=== PATIENT | male | born 1985 | race Caucasian/White ===

== ENCOUNTER 2025-01-30 16:20 | Inpatient (IN) ==
[2025-01-30] MEDS: LORazepam 2 MG/1 ML VIAL IV ONE (16:46)
[2025-01-30] MEDS: LORazepam 2 MG/1 ML VIAL IV STA (16:54)
[2025-01-30] MEDS ORDERED: Ativan IV Alcohol Withdrawal--Active Protocol IV PRN (16:55)
[2025-01-30] MEDS ORDERED: LORazepam 2 MG/1 ML VIAL IV PRN ×3 (16:55)
--- NOTE | 2025-01-30 17:01 | Emergency Department Note ---
Impression & Plan Delirium tremens, Transaminitis, Alcohol withdrawal seizure ED Provider Note NAME: KAYLEIGH GUTIERREZ AGE: 39 SEX: M : 1985 ARRIVES VIA: Ambulance INFORMANT: Patient, EMS/nursing report ED PROVIDER(S): Sonido Romero MD CHIEF COMPLAINT: Fall MEDICAL DECISION MAKING: Patient presents due to concern for a fall. I was called to the bedside emergently as the patient was having an active seizure. Upon my arrival the patient was not following commands. Patient's face appeared blue so his c- collar was removed in light of the concern for airway constraint. Patient was ordered IV Ativan and patient was able to open his airway better to where he regained color. Patient did receive additional IV Ativan 2 mg as the patient was noncompliant. Security did need to be called to help physically restrain the patient as the patient was not responding to verbal commands and was trying to get up and out of bed try to remove things from himself and thought that this was to the detriment of the patient as well as staff. Patient was also ordered IV Keppra blood work CT head cervical spine. Soft restraints also applied. Patient did require a total of 6 of IV Ativan. The patient did receive 3 g of Keppra. IV thiamine and folic acid also ordered in addition to IV fluids. Patient with a normal white count hemoglobin of 13.2 with a normal platelet count. The patient's kidney function unremarkable. Transaminitis noted with an AST and ALT of 121 and 60. Patient's lipase negative. Alcohol negative. Patient's chest x-ray without acute concerning findings. CT head and neck are negative. C-collar in place this could not clinically clear the patient. Given the concern for possible alcohol withdrawal related seizure I did speak with the on-call hospital service Dr. Billy and the patient was admitted to the medicine service. Critical Care: I have personally spent 48 minutes of critical care time in direct management of this patient. This includes bedside care, interpretation of diagnostic studies, and testing, discussion with consultants, patient, and family members, and other require inpatient management activities. This 48 minutes is in excess of all separately billable procedures. Discussion w/ other healthcare providers: Dr. Ernandez inpatient medicine service Prior /Outside records reviewed: I did review part of the visit note from July 2024 which showed the patient does have a history of alcohol use. Differential diagnosis: Epilepsy, infection, hypoglycemia, electrolyte abnormalities, cardiac sources, intracerebral event, trauma, toxicologic, neurologic, syncope, as well as other pathologies. Fracture, dislocation, contusion, strain, sprain, ICH, hemothorax, intra-abdominal injury, anemia among other causes were considered. Diagnostics, as interpreted by me: ECG: Normal sinus rhythm, rate of 86, normal FL and QRS, prolonged QTc, normal axis. No obvious STEMI. Cardiac monitoring: An order was placed for continuous cardiac monitoring. The monitor shows a rate of 87 with sinus rhythm. Patient was placed on pulse oximetry Medical decision rules: None Imaging studies: I informally interpreted the patient's Chest x-ray does not show obvious pneumonia or pneumothorax with formal report to follow. HPI: Patient presents due to concern for a fall. Was reported the patient had a BSG 114. Noted to be incontinent. No reported witnessed event but was found at the bottom of stairs. Patient reportedly was initially compliance awake alert following commands but had a seizure abruptly prior to being seen but this is what nursing/EMS could provide prior to arrival. Patient was reportedly not confused and was following all commands and was compliant. No reported prior history of seizures. PAST MEDICAL HISTORY: See Below PAST SURGICAL HISTORY: See Below SOCIAL HISTORY: See Below HOME MEDICATIONS: See Below ALLERGIES: See Below VITALS: See Below PHYSICAL EXAMINATION: GENERAL: Severe distress, c-collar in place, EYE EXAM: Normal conjunctiva. PERRL, no anisocoria and EOM's grossly intact w/o pain. OROPHARYNX: Moist mucus membranes, grossly normal dentition. Blood noted within the oropharynx. NECK: Trachea midline, no stridor. Supple, no nuchal rigidity, no adenopathy, non-tender. No signs of meningismus. FROM of the neck with good chin to chest and neck extension. LUNGS: Clear to auscultation. Normal chest wall mechanics. HEART: NSR, no MRG. ABDOMEN: Abdomen soft, non-tender, no masses, no rebound or guarding. BACK: No CVA TTP. SKIN: No rashes and no bruising. UPPER EXTREMITIES: Upper extremities are grossly normal. LOWER EXTREMITIES: Grossly normal, no edema. NEURO EXAM: Does not follow commands but normal speech cranial nerves II through XII grossly intact does move all 4 extremities. Able to speak. Past Med/Surg History Problem List (Updated 01/30/25 @ 22:54 by Sonido Romero MD) Alcohol withdrawal seizure (Acute) Postictal psychosis Transaminitis (Acute) Delirium tremens (Acute) New onset seizure Oral abscess Social History Smoking Status: Current every day smoker Tobacco Type: Cigarettes Hx Alcohol Use: Yes Alcohol Intake Frequency Comment: Regularly Hx Substance Use: Yes Preferred Language: Belarusian Current Living Situation: Alone Feels Safe at Home: Yes Allergies Allergies Allergy/AdvReac Type Severity Reaction Status Date / Time No Known Allergies Allergy Unverified 08/03/24 15:20 Home Meds Home Medications Medication Instructions Recorded Confirmed No Known Home Medications 08/03/24 08/03/24 Results & Data (ED) Vital Signs Vital Signs - 24 hr 01/30/25 16:09 01/30/25 16:12 01/30/25 16:42 Temperature 36.4 C L 36.4 C L Temperature Source Oral Oral Pulse Rate 94 H 85 Pulse Rate [Apical] 94 H Respiratory Rate 18 18 Respiratory Effort / Characteristics Non-Labored Non-Labored Respiratory Depth Normal Normal Respiratory Pattern Regular Blood Pressure 145/93 H Blood Pressure [Right Arm] Blood Pressure Mean 110 Blood Pressure Mean [Right Arm] Blood Pressure Position Lying Blood Pressure Position [Right Arm] Pulse Oximetry 99 99 Oxygen Delivery Method Room Air Room Air Sepsis Recent Fever Within 48 Hours No Sepsis New/Unexplained Change in Mental Status N/A Sepsis Action Taken by Nursing No Action Required 01/30/25 17:09 01/30/25 17:52 01/30/25 18:24 Temperature Temperature Source Pulse Rate Pulse Rate [Apical] 94 H 88 82 Respiratory Rate 17 16 20 Respiratory Effort / Characteristics Respiratory Depth Respiratory Pattern Blood Pressure Blood Pressure [Right Arm] 129/89 113/82 116/77 Blood Pressure Mean Blood Pressure Mean [Right Arm] 102 92 90 Blood Pressure Position Blood Pressure Position [Right Arm] Lying Pulse Oximetry 97 99 96 Oxygen Delivery Method Room Air Room Air Room Air Sepsis Recent Fever Within 48 Hours Sepsis New/Unexplained Change in Mental Status Sepsis Action Taken by Residential Medications Current Medication List: was personally reviewed by me Laboratory Data Attestation: I reviewed the patient's lab results. 01/30/25 16:30 01/30/25 16:30 Lab Results 03/28/25 Range/Units 16:30 WBC 7.96 (4.8-10.8) K/ul RBC 3.87 L (4.70-6.10) M/uL Hgb 13.2 L (14.0-18.0) g/dl Hct 38.7 L (42.0-52.0) % MCV 100.0 (80.0-100.0) fL MCH 34.1 H (25.0-34.0) pg MCHC 34.1 (32.0-36.0) g/dL RDW Std Deviation 41.5 (36.4-46.3) fL RDW Coeff of Adonis 11.3 L (11.5-14.5) % Plt Count 145 (130-400) K/uL MPV 9.8 (9.4-12.4) fL Immature Gran % (Auto) 0.6 % Neut % (Auto) 76.7 % Lymph % (Auto) 12.9 % Karnes % (Auto) 9.2 % Eos % (Auto) 0.1 % Baso % (Auto) 0.5 % Neut # (Auto) 6.10 (1.40-6.50) K/uL Lymph # (Auto) 1.03 L (1.20-3.40) K/uL Karnes # (Auto) 0.73 H (0.11-0.59) K/uL Eos # (Auto) 0.01 (0.00-0.50) K/uL Baso # (Auto) 0.04 (0.00-0.20) K/uL Immature Gran # (Auto) 0.05 (0.01-0.20) K/uL PT 10.7 (9.0-12.0) Seconds INR 1.0 (0.9-1.1) APTT 27 (21-31) Seconds PTT Ratio 1.0 Sodium 137 (136-145) mmol/L Potassium 3.5 (3.5-5.1) mmol/L Chloride 98 (98-107) mmol/L Carbon Dioxide 18 L (21-32) mmol/L Anion Gap 21 H (3-11) BUN 8 (6-23) mg/dl Creatinine 0.86 (0.6-1.4) mg/dl Est Cr Clr Drug Dosing 110.6 ml/min eGFR 111.56 BUN/Creatinine Ratio 9.3 L (10-20) Glucose 143 H (70-99(Fasting)) mg/dl Calcium 9.7 (8.6-10.3) mg/dl Phosphorus 4.9 (2.5-4.9) mg/dl Magnesium 2.2 (1.7-2.4) mg/dl Total Bilirubin 1.0 (0.2-1.0) mg/dl AST 121 H (13-39) U/L ALT 60 H (7-52) U/L Alkaline Phosphatase 269 H (34-104) U/L Total Protein 8.4 H (6.0-8.3) gm/dl Albumin 4.6 (3.4-5.0) gm/dl Globulin 3.8 (2.5-4.0) gm/dl Albumin/Globulin Ratio 1.2 (0.9-2) Lipase 64 (11-82) U/L Ethyl Alcohol mg/dL < 10.0 (<10.0) mg/dl Administered Medications Lactated Ringer's (Lr) 1,000 mls @ 125 mls/hr IV .Q8H ALEX Stop: 01/31/25 20:30 Last Admin: 01/30/25 21:31 Dose: 125 mls/hr Documented By: HODAN Lorazepam (Lorazepam 2 Mg/1 Ml Vial) 2 mg IV UD PRN; Protocol PRN Reason: EtOH Withdrawal AWSS Score 8,9 Stop: 03/01/25 16:54 Last Admin: 01/30/25 17:31 Dose: 2 mg Documented By: OLAYINKA Lorazepam (Lorazepam 2 Mg/1 Ml Vial) 1 mg IV Q6H ALEX Stop: 03/01/25 20:30 Last Admin: 01/30/25 20:43 Dose: 1 mg Documented By: HODAN Discontinued Medications Thiamine HCl 100 mg/ Syringe 10 mls @ 2 mls/min IV NOW STA Stop: 01/30/25 17:01 Last Admin: 01/30/25 18:24 Dose: 2 mls/min Documented By: OLAYINKA Folic Acid 1 mg/ Syringe 10 mls @ 5 mls/min IV NOW STA Stop: 01/30/25 16:58 Last Admin: 01/30/25 18:22 Dose: 5 mls/min Documented By: OLAYINKA Sodium Chloride (Nss) 1,000 mls @ 999 mls/hr IV .Q1H1M ONE Stop: 01/30/25 17:58 Last Infusion: 01/30/25 19:19 Dose: Infused Documented By: Admin: 01/30/25 17:17 Dose: 999 mls/hr Documented By: OLAYINKA Thiamine HCl 100 mg/ Syringe 10 mls @ 2 mls/min IV NOW STA Stop: 01/30/25 20:35 Last Admin: 01/30/25 21:34 Dose: 2 mls/min Documented By: HODAN Folic Acid 1 mg/ Syringe 10 mls @ 5 mls/min IV QAM ONE Stop: 01/30/25 20:32 Last Admin: 01/30/25 21:34 Dose: 5 mls/min Documented By: HODAN Levetiracetam (Levetiracetam 500 Mg/5 Ml Vial) 3,000 mg IV NOW STA Stop: 01/30/25 16:55 Last Admin: 01/30/25 17:13 Dose: 3,000 mg Documented By: OLAYINKA Lorazepam (Lorazepam 2 Mg/1 Ml Vial) Confirm Administered Dose 2 mg .ROUTE .STK- MED ONE Stop: 01/30/25 16:46 Last Admin: 01/30/25 17:15 Dose: Not Given Documented By: OLAYINKA Lorazepam (Lorazepam 2 Mg/1 Ml Vial) 2 mg IV NOW ONE Stop: 01/30/25 17:01 Last Admin: 01/30/25 16:46 Dose: 2 mg Documented By: OLAYINKA Lorazepam (Lorazepam 2 Mg/1 Ml Vial) Confirm Administered Dose 2 mg .ROUTE .STK- MED ONE Stop: 01/30/25 16:52 Last Admin: 01/30/25 17:15 Dose: Not Given Documented By: OLAYINKA Lorazepam (Lorazepam 2 Mg/1 Ml Vial) 2 mg IV NOW STA Stop: 01/30/25 17:00 Last Admin: 01/30/25 16:54 Dose: 2 mg Documented By: OLAYINKA Imaging Data Radiologist's Impression: Chest X-Ray 01/30/25 16:55 EXAM: Radiograph of the Chest 1 View INDICATION: Trauma TECHNIQUE: Frontal view of the chest. COMPARISON: 09/30/2018 FINDINGS: Lungs and pleural spaces: No consolidation or pulmonary edema. No pleural effusion or pneumothorax. Heart: Shape and configuration within normal limits allowing for technique. Mediastinum: Normal contour. Bones/joints: Old right lateral seventh or eighth rib fracture. No acute osseous abnormality. Soft tissues: No abnormality noted. No radiopaque foreign body noted. Upper abdomen: No abnormality noted. IMPRESSION: No acute cardiopulmonary disease. ACT 112: N/A Electronically signed by Nay Murray 01-30-2025 5:[address] 01/30/25 16:56 EXAM: CT Head and Cervical Spine Without Intravenous Contrast INDICATION: Unwitnessed fall with loss of consciousness and confusion. TECHNIQUE: Axial computed tomography images of the head/brain and cervical spine without intravenous contrast. Sagittal and coronal reformatted images were created and reviewed. This CT exam was performed using one or more of the following dose reduction techniques: automated exposure control, adjustment of the mA and/or kV according to patient size, and/or use of iterative reconstruction technique. COMPARISON: No relevant prior studies available. FINDINGS: Limitations: None. Brain and extra-axial spaces: No abnormality noted. No hemorrhage. No significant white matter disease. No edema. No ventriculomegaly. Sinuses: There is mild chronic mucosal thickening of the left sinuses. No sinus fluid. Mastoid air cells: No mastoid effusion. Orbits: No significant abnormality noted. Vertebrae: There is diffuse mild to moderate facet arthrosis. Moderate spondylosis and mild uncal spurring C5-C6 and C6-C7. No fracture or significant subluxation. Discs/spinal canal/neural foramina: Mild to moderate disc space narrowing C5-C6 and C6-C7. There is mild ventral canal stenosis at C3-C4 and C4-C5. There is asymmetric mild to moderate right ventral canal and mild right foraminal stenosis at C5-C6 and C6-C7. Soft tissues: No significant abnormality noted. Vasculature: No acute abnormality noted. Lung apices: No significant abnormality noted. Pleural space: No visualized pleural effusion or pneumothorax. IMPRESSION: 1. No acute change in the brain. 2. Cervical degenerative changes without fracture. ACT 112: N/A Electronically signed by Nay Murray 01-30-2025 6:[address] 01/30/25 16:56 EXAM: CT Head and Cervical Spine Without Intravenous Contrast INDICATION: Unwitnessed fall with loss of consciousness and confusion. TECHNIQUE: Axial computed tomography images of the head/brain and cervical spine without intravenous contrast. Sagittal and coronal reformatted images were created and reviewed. This CT exam was performed using one or more of the following dose reduction techniques: automated exposure control, adjustment of the mA and/or kV according to patient size, and/or use of iterative reconstruction technique. COMPARISON: No relevant prior studies available. FINDINGS: Limitations: None. Brain and extra-axial spaces: No abnormality noted. No hemorrhage. No significant white matter disease. No edema. No ventriculomegaly. Sinuses: There is mild chronic mucosal thickening of the left sinuses. No sinus fluid. Mastoid air cells: No mastoid effusion. Orbits: No significant abnormality noted. Vertebrae: There is diffuse mild to moderate facet arthrosis. Moderate spondylosis and mild uncal spurring C5-C6 and C6-C7. No fracture or significant subluxation. Discs/spinal canal/neural foramina: Mild to moderate disc space narrowing C5-C6 and C6-C7. There is mild ventral canal stenosis at C3-C4 and C4-C5. There is asymmetric mild to moderate right ventral canal and mild right foraminal stenosis at C5-C6 and C6-C7. Soft tissues: No significant abnormality noted. Vasculature: No acute abnormality noted. Lung apices: No significant abnormality noted. Pleural space: No visualized pleural effusion or pneumothorax. IMPRESSION: 1. No acute change in the brain. 2. Cervical degenerative changes without fracture. ACT 112: N/A Electronically signed by Nay Murray 01-30-2025 6:08 PM Discharge Plan Visit Data Chief Complaint: Fall ED Provider: Sonido Romero Discharge Problem: Delirium tremens, Transaminitis, Alcohol withdrawal seizure Patient Disposition: Admitted As Inpatient Discharge Instructions Interventions: ED Discharge Assessment Last Done: 01/30/25 20:08 Discharge Problem: Alcohol withdrawal seizure Qualifiers: Complication of substance-induced condition: with delirium Qualified Code(s): F 10.931 - Alcohol use, unspecified with withdrawal delirium; R56.9 - Unspecified convulsions
[2025-01-30 17:11] LABS: Basophils # (auto) 0.04 K/uL (0.00-0.20); Basophils % (auto) 0.5 %; Eosinophils # (auto) 0.01 K/uL (0.00-0.50); Eosinophils % (auto) 0.1 %; Hematocrit (blood only) 38.7 % (42.0-52.0); Hemoglobin 13.2 g/dl (14.0-18.0); Immature Granulocytes # (auto) 0.05 K/uL (0.01-0.20); Immature Granulocytes % (auto) 0.6 %; Lymphocytes # (auto) 1.03 K/uL (1.20-3.40); Lymphocytes % (auto) 12.9 %; Mean Corpuscular Hemoglobin 34.1 pg (25.0-34.0); Mean Corpuscular Hgb Conc 34.1 g/dL (32.0-36.0); Mean Platelet Volume 9.8 fL (9.4-12.4); Monocytes # (auto) 0.73 K/uL (0.11-0.59); Monocytes % (auto) 9.2 %; Neutrophils % (auto) 76.7 %; Platelet Count 145 K/uL (130-400); RDW Coefficient of Variation 11.3 % (11.5-14.5); RDW Standard Deviation 41.5 fL (36.4-46.3); Red Blood Count 3.87 M/uL (4.70-6.10); White Blood Count 7.96 K/ul (4.8-10.8)
[2025-01-30] MEDS: levETIRAcetam 500 MG/5 ML VIAL IV STA (17:13)
[2025-01-30] MEDS: LORazepam 2 MG/1 ML VIAL ONE ×2 (17:15)
[2025-01-30] MEDS: SODIUM CHLORIDE 0.9% 1,000 ML IV ONE (17:17)
[2025-01-30 17:28] LABS: Albumin Globulin Ratio 1.2 (0.9-2); Albumin Level 4.6 gm/dl (3.4-5.0); BUN Creatinine Ratio 9.3 (10-20); Calcium 9.7 mg/dl (8.6-10.3); Creatinine Clr Calc Pharmacy 110.6 ml/min; Globulin 3.8 gm/dl (2.5-4.0); Magnesium 2.2 mg/dl (1.7-2.4); Phosphorus 4.9 mg/dl (2.5-4.9); Potassium 3.5 mmol/L (3.5-5.1); Total Protein 8.4 gm/dl (6.0-8.3)
[2025-01-30] MEDS: LORazepam 2 MG/1 ML VIAL IV PRN (17:31)
[2025-01-30 17:38] LABS: Partial Thromboplastin Time 27 Seconds (21-31); Prothrombin Time 10.7 Seconds (9.0-12.0)
--- NOTE | 2025-01-30 17:46 | XRay Report ---
EXAM: Radiograph of the Chest 1 View INDICATION: Trauma TECHNIQUE: Frontal view of the chest. COMPARISON: 09/30/2018 FINDINGS: Lungs and pleural spaces: No consolidation or pulmonary edema. No pleural effusion or pneumothorax. Heart: Shape and configuration within normal limits allowing for technique. Mediastinum: Normal contour. Bones/joints: Old right lateral seventh or eighth rib fracture. No acute osseous abnormality. Soft tissues: No abnormality noted. No radiopaque foreign body noted. Upper abdomen: No abnormality noted. IMPRESSION: No acute cardiopulmonary disease. ACT 112: N/A Electronically signed by Nay Murray 01-30-2025 5:46 PM
--- NOTE | 2025-01-30 18:08 | CT Scan Report ---
EXAM: CT Head and Cervical Spine Without Intravenous Contrast INDICATION: Unwitnessed fall with loss of consciousness and confusion. TECHNIQUE: Axial computed tomography images of the head/brain and cervical spine without intravenous contrast. Sagittal and coronal reformatted images were created and reviewed. This CT exam was performed using one or more of the following dose reduction techniques: automated exposure control, adjustment of the mA and/or kV according to patient size, and/or use of iterative reconstruction technique. COMPARISON: No relevant prior studies available. FINDINGS: Limitations: None. Brain and extra-axial spaces: No abnormality noted. No hemorrhage. No significant white matter disease. No edema. No ventriculomegaly. Sinuses: There is mild chronic mucosal thickening of the left sinuses. No sinus fluid. Mastoid air cells: No mastoid effusion. Orbits: No significant abnormality noted. Vertebrae: There is diffuse mild to moderate facet arthrosis. Moderate spondylosis and mild uncal spurring C5-C6 and C6-C7. No fracture or significant subluxation. Discs/spinal canal/neural foramina: Mild to moderate disc space narrowing C5-C6 and C6-C7. There is mild ventral canal stenosis at C3-C4 and C4-C5. There is asymmetric mild to moderate right ventral canal and mild right foraminal stenosis at C5-C6 and C6-C7. Soft tissues: No significant abnormality noted. Vasculature: No acute abnormality noted. Lung apices: No significant abnormality noted. Pleural space: No visualized pleural effusion or pneumothorax. IMPRESSION: 1. No acute change in the brain. 2. Cervical degenerative changes without fracture. ACT 112: N/A Electronically signed by Nay Murray 01-30-2025 6:08 PM
[2025-01-30] MEDS: FOLIC ACID 1 MG in SYRINGE 9.8 ML IV STA (18:22)
[2025-01-30] MEDS: THIAMINE HCL 100 MG in SYRINGE 9 ML IV STA ×2 (18:24→21:34)
--- NOTE | 2025-01-30 19:16 | History & Physical Report ---
Date of Service January 30, 2025 Assessment & Plan (1) New onset seizure: (2) Delirium tremens: (3) Postictal psychosis: (4) Transaminitis: Plan Patient presents to the emergency room after being found at the bottom of the stairs with suspected fall and loss of consciousness. High suspicion patient had a seizure while at work. Based on patient's history back in 2023 of significant alcohol use, highly suspicious that patient may have had alcohol withdrawal seizure. Patient had subsequent observed seizure while here in the ED. Requires total of 6 mg of Ativan and loaded with Keppra. Patient now postictal and sedated from the interventions. Patient is critically ill, high risk for recurrent seizures needs hospital level care, monitoring, specialty evaluation and IV medications. Admit to monitored setting in the progressive care unit Schedule Ativan and IV Keppra As needed Ativan based on alcohol withdrawal scoring MRI of the brain EEG Neurology consultation Vitamin replacement Monitor laboratory studies LFTs consistent with alcohol use, check ultrasound of the liver, monitor LFTs Metabolic acidosis most likely in the setting of seizure and alcohol withdrawal. Monitor laboratory studies Communication and conversation with ED physician, cervical spine can only be cleared when patient able to respond to questions accurately and appropriately determine if he is having any pain or paresthesias with examinations,/palpation of the cervical spine. Anticipate cervical spine will not be able to be cleared and cervical collar will need to remain in place until least tomorrow History of Present Illness Chief Complaint: Fall, suspected seizure Primary Care Provider: NO PCP Patient 39-year-old gentleman who was found at his workplace at the bottom of the stairs appearing his elevated falling. Apparently he had lost consciousness and initially was confused and incontinent. EMS reported that he was unable to state the month and year correctly initially. As a EMS started to attend him he was oriented x 4. He states that he fell up the stairs and did not fall down the stairs but does not remember falling. He denied any head or neck pain. In the field the patient states that he took some DayQuil prior to going to work does not take any other medications but does smoke marijuana. He denied any alcohol use today. No previous history of seizures. In the emergency room imaging was unremarkable, however the cannot fully clear his cervical spine due to his sedation. He did have a witnessed seizure here in the hospital in the emergency department. He ultimately needed 2 mg of Ativan x 3 doses and a loading dose of Keppra. Other laboratory studies were significant for some tra nsaminitis. Time of my evaluation the patient is significantly sedated and/or postictal. Would open his eyes. He attempted to answer 1 or 2 questions but what he answered was unintelligible. Communication with the nurses stated that prior to his seizure he was completely oriented here in the emergency department. They report that he denied alcohol use. They states that his agitation started with the seizure. Review of the EMR notes that he was in that he emergency room back in July 2024. At that time the patient did admit to drinking a sixpack of beer a day. Allergies Allergy/AdvReac Type Severity Reaction Status Date / Time No Known Allergies Allergy Unverified 08/03/24 15:20 Home Medications Medication Instructions Recorded Confirmed Type No Known Home Medications 08/03/24 08/03/24 History Past Med/Surg History Problem List (Updated 01/30/25 @ 19:11 by Ismael Billy DO) Postictal psychosis Transaminitis Delirium tremens New onset seizure Oral abscess Social History Smoking Status: Current every day smoker Tobacco Type: Cigarettes Hx Alcohol Use: Yes Alcohol Intake Frequency Comment: Regularly Preferred Language: Occitan Feels Safe at Home: Yes Review of Systems Review of Systems: Unobtainable due to the patient's condition Physical Exam Physical Exam: Constitutional: Sedated HEENT: Mucous membranes slightly dry, dried blood on lips, evidence of tongue biting and contusion and small laceration Neck: In cervical collar Lungs: Clear to auscultation, decreased, no wheezes rales or rhonchi CV: S1-S2, regular Abdomen: Soft, nontender, nondistended Extremities: No significant edema Musculoskeletal: No significant joint tenderness, no swollen's, tender joints. Neuro: Patient sedated, withdraws to pain, does open his eyes when you call his name loudly, often falls back to sleep before he being able to answer question, patient does seem to be able to spontaneously move all 4 extremities but not on command Psych: Sedated Results & Data Results & Data Vital Signs (Past 12 Hours) Vital Signs Temp Pulse Pulse Resp BP BP Pulse Ox 01/30/25 18:24 82 20 116/77 96 01/30/25 17:52 88 16 113/82 99 01/30/25 17:09 94 H 17 129/89 97 01/30/25 16:42 85 01/30/25 16:12 36.4 C L 94 H 18 99 01/30/25 16:09 36.4 C L 94 H 18 145/93 H 99 O2 Del Method 01/30/25 18:24 Room Air 01/30/25 17:52 Room Air 01/30/25 17:09 Room Air 01/30/25 16:42 01/30/25 16:12 Room Air 01/30/25 16:09 Room Air Diagnostic Findings Reviewed imaging, laboratory and diagnostic studies. Pertinent findings as below. Reviewed head and neck CT report, no acute findings Chest x-ray personally viewed, no consolidative infiltrate Ethyl alcohol less than 10 A AST 121, ALT 60, alk phos 269 Carbon dioxide 18 Rest of electrolytes stable Coags within normal limits WBCs 7.9 Hemoglobin 13.2 Platelets 145
[2025-01-30] MEDS ORDERED: ONDANSETRON INJ 2 MG/ML 2 ML VIAL IV PRN (20:31)
[2025-01-30] MEDS: LORazepam 2 MG/1 ML VIAL IV SCH (20:43)
[2025-01-30] MEDS: LACTATED RINGER'S 1,000 ML IV SCH (21:31)
[2025-01-30] MEDS: FOLIC ACID 1 MG in SYRINGE 9.8 ML IV ONE (21:34)
[2025-01-30] MEDS: levETIRAcetam 500 MG/5 ML VIAL **500mg IV SCH (23:01)
--- NOTE | 2025-01-30 23:30 | Magnetic Resonance Report ---
Exam(s): MRI HEAD Without Contrast EXAM: MR Head Without Intravenous Contrast CLINICAL HISTORY: Reason for exam: seizure. TECHNIQUE: Magnetic resonance images of the head/brain without intravenous contrast in multiple planes. COMPARISON: Prior head CT from January 30, 2025. FINDINGS: This study is limited secondary to motion artifact. Brain: Unremarkable. No mass. No hemorrhage. No acute infarct. The flow voids at the base of the brain are intact. Ventricles: Mild ventriculomegaly. Bones/joints: Unremarkable. No acute fracture. Sinuses: Chronic ethmoid, right sphenoid and left maxillary sinusitis. No acute sinusitis. Mastoid air cells: Unremarkable as visualized. No mastoid effusion. Orbits: Unremarkable as visualized. IMPRESSION: No evidence of acute intracranial pathology in this limited study. Electronically signed by: Yvette Jolly MD 01/30/25 23:29 PM
--- NOTE | 2025-01-31 02:01 | Ultrasound Report ---
EXAM: US liver CLINICAL HISTORY: Transaminitis, elevated liver function. TECHNIQUE: Limited ultrasound of the liver and gallbladder, including the right kidne,y was performed in greyscale and Doppler. Multiple images were obtained in transverse and longitudinal planes. COMPARISON: No prior studies are available for comparison. FINDINGS: Liver: An enlarged liver measuring 190.3 mm in craniocaudal length shows diffusely raised parenchymal echogenicity suggests fatty infiltration. No evidence of focal lesions, cysts, or masses. Hepatic vasculature appears normal. Gallbladder: Gallbladder size: The Gallbladder is visualized and appears normal in size and shape. Gallbladder wall measures 1.6 mm in thickness. A few echogenic floating debris were seen in the gallbladder lumen near its fundal region. No gallstones, wall thickening, or gross pericholecystic fluid noted. No evidence of gallbladder wall edema or signs of acute cholecystitis. Biliary Tree: Common bile duct: The common bile duct is within normal limits in caliber and not dilated. The common bile duct measures 3.7 mm in luminal caliber. No evidence of choledocholithiasis or biliary obstruction. Right kidney : Normal appearing, measures 11.08 mm in length with normal parenchymal echogenicity. No evidence of any hydronephrosis stone or cyst. IMPRESSION: 1. Hepatomegaly with diffuse parenchymal steatosis. 2. Few foci of floating intraluminal debris seen in the gallbladder, no cholelithiasis seen, needs clinical and alcaraz's sign correlation to assess for a remote possibility of evolving infective-inflammatory etiology. 3. Clinical correlation advised. Electronically signed by Adria Rodriguez 01-31-2025 02:01 AM
[2025-01-31 06:36] LABS: Hematocrit (blood only) 33.5 % (42.0-52.0); Hemoglobin 11.8 g/dl (14.0-18.0); Mean Corpuscular Hemoglobin 34.6 pg (25.0-34.0); Mean Corpuscular Hgb Conc 35.2 g/dL (32.0-36.0); Mean Corpuscular Volume 98.2 fL (80.0-100.0); Mean Platelet Volume 10.2 fL (9.4-12.4); Platelet Count 117 K/uL (130-400); RDW Coefficient of Variation 11.2 % (11.5-14.5); RDW Standard Deviation 40.3 fL (36.4-46.3); Red Blood Count 3.41 M/uL (4.70-6.10); White Blood Count 6.91 K/ul (4.8-10.8)
[2025-01-31 07:03] LABS: Albumin Level 3.5 gm/dl (3.4-5.0); Bilirubin Direct 0.3 mg/dl (0-0.2); Bilirubin,Total 1.3 mg/dl (0.2-1.0); Calcium 8.3 mg/dl (8.6-10.3); Magnesium 2.1 mg/dl (1.7-2.4); Potassium 3.6 mmol/L (3.5-5.1)
[2025-01-31 07:11] LABS: Albumin Globulin Ratio 1.2 (0.9-2); BUN Creatinine Ratio 16.1 (10-20); Creatinine Clr Calc Pharmacy 159.6 ml/min; Globulin 2.9 gm/dl (2.5-4.0); Phosphorus 3.2 mg/dl (2.5-4.9); Total Protein 6.4 gm/dl (6.0-8.3)
[2025-01-31] MEDS: MULTIVITAMIN TAB PO SCH (07:51)
[2025-01-31] MEDS: FOLIC ACID 1 MG TAB PO SCH (07:53)
[2025-01-31] MEDS: THIAMINE HCL 100 MG TAB PO SCH (07:53)
[2025-01-31] MEDS ORDERED: PHENobarbital PO Alcohol Withdrawal PO STA (08:25)
[2025-01-31] MEDS: PHENobarbital sodium 65 MG/ML VIAL IV STA ×3 (08:38→16:29)
[2025-01-31 10:30] LABS: Appearance Urine Clear (Clear); Bacteria Urine Automated None Seen (None Seen); Bilirubin Urine Negative (Negative); Blood Urine Negative (Negative); Cast Urine Automated 0-2 /lpf (0-2); Color Urine Yellow; Epithelial Cell Urine Auto 0-2 /hpf (0-2); Glucose Urine UA Negative (Negative); Ketones Urine 1+ (Negative); Leukocyte Esterase Urine Trace (Negative); Nitrite Urine Negative (Negative); Protein Urine 1+ (Negative); RBC Urine Automated 0-2 /hpf (0-2); Specific Gravity Urine 1.022 (1.000-1.030); Urobilinogen Urine Negative (Negative); WBC Urine Automated 0-5 /hpf (0-5)
[2025-01-31 11:04] LABS: Amphetamines+Metham, Urine Neg (Neg); Barbiturates, Urine Neg (Neg); Benzodiazepine, Urine Neg (Neg); Cocaine, Urine Neg (Neg); Fentanyl, Urine Neg (Neg); MDMA (Ecstacy), Urine Neg (Neg); Marijuana, Urine Pos (Neg); Methadone, Urine Neg (Neg); Opiate, Urine Neg (Neg); Phencyclidine, Urine Neg (Neg)
--- NOTE | 2025-01-31 14:04 | Hospitalist Progress Note ---
Date of Service January 31, 2025 Assessment & Plan (1) Delirium tremens: Plan: -patient had 2 seizures, one prior to arrival, one in ED, both witnessed -no prior seizures or seizure hx, drug screen positive for THC only, negative alcohol level supportive of DT -no nidus of infection, MRI head unremarkable -strongly suspect 2/2 alcohol withdrawal, other etiologies less likely, loaded with keppra in ED Plan: -f/u with neurology outpatient -continue 500 bid of keppra outpatient -discussed alcohol cessation, risks and benefits explained, patient does not have any intention of stopping alcohol use at this time -continue thiamine, folic acid -stop scheduled ativan, start phenobarbital taper, continue ativan protocol for LETY -if patient leaves today will be AMA as patient is very high risk for very severe withdrawals (2) New onset seizure: Plan: -see above (3) Postictal psychosis: Plan: -improved (4) Transaminitis: Plan: -hepatic steatosis vs. cirrhosis Plan I spent a total of 45 minutes in direct patient care, including [id number] time with the patient and/or family, reviewing medical records, ordering and reviewing diagnostic tests, and coordinating care with other healthcare providers. This time includes: history taking, physical examination, medical decision making, counseling, ECG interpretation, imaging interpretation, lab interpretation, orders, and education, excluding time spent in the performance of separately billed services. Admission and Anticipated Discharge Date Admission Date: January 30, 2025 Subjective Patient seen and examined at bedside. Patient better this morning, alert and orriented x3. States he drinks at least a 6 pack of beer daily, has not drank as much recently and has been attempting to slow down. No history of seizure disorder in past. States he will continue to drink at home after discharge, and states that he do es not believe in AA or other therapy services. Review of Systems Review of Systems: CONSTITUTIONAL: fatigue, tremulousness EYES: Patient denies any visual symptoms. EARS, NOSE, AND THROAT: No difficulties with hearing. No symptoms of rhinitis or sore throat. CARDIOVASCULAR: Patient denies chest pains, palpitations, orthopnea and paroxysmal nocturnal dyspnea. RESPIRATORY: No dyspnea on exertion, no wheezing or cough. GI: No nausea, vomiting, diarrhea, constipation, abdominal pain, hematochezia or melena. : No urinary hesitancy or dribbling. No nocturia or urinary frequency. No abnormal urethral discharge. MUSCULOSKELETAL: No myalgias or arthralgias. NEUROLOGIC: No chronic headaches, no seizures. Patient denies numbness, tingling or weakness. PSYCHIATRIC: Patient denies problems with mood disturbance. No problems with anxiety. ENDOCRINE: No excessive urination or excessive thirst. DERMATOLOGIC: Patient denies any rashes or skin changes. Physical Exam Physical Exam: Gen: A&O 3 NAD HEENT: NCAT, EOMI, not icteric. External ears normal. No rhinorrhea. Moist mucous membranes. Neck: Supple, full range of motion, no observable masses, No meningeal sign. Lungs: No Respiratory distress. CV: RRR, no edema. Abdomen: Soft, nondistended, No rebound tenderness. MSK: No joint swelling, no redness. Skin: No rashes, petechiae, lesions. Normal color per patient. Neuro: Normal Gait, Grossly intact. Tremulousness noted Results & Data Results & Data Vital Signs (Past 12 Hours) Vital Signs Temp Pulse Pulse Resp BP BP Pulse Ox 01/31/25 11:18 36.8 C 53 L 16 127/80 97 01/31/25 08:38 76 20 119/67 01/31/25 07:12 37 C 76 18 119/67 97 01/31/25 03:03 37.0 C 98 H 20 128/79 93 O2 Del Method 01/31/25 11:18 Room Air 01/31/25 08:38 01/31/25 07:12 Room Air 01/31/25 03:03 Room Air Laboratory Results -personally reviewed, LFTs consistent with hepatic steatosis, likely cirrhosis, THC positive on tox screen, negative alcohol supportive of DT Diagnostic Findings Liver Ultrasound 01/31/25 00:00 EXAM: US liver CLINICAL HISTORY: Transaminitis, elevated liver function. TECHNIQUE: Limited ultrasound of the liver and gallbladder, including the right kidne,y was performed in greyscale and Doppler. Multiple images were obtained in transverse and longitudinal planes. COMPARISON: No prior studies are available for comparison. FINDINGS: Liver: An enlarged liver measuring 190.3 mm in craniocaudal length shows diffusely raised parenchymal echogenicity suggests fatty infiltration. No evidence of focal lesions, cysts, or masses. Hepatic vasculature appears normal. Gallbladder: Gallbladder size: The Gallbladder is visualized and appears normal in size and shape. Gallbladder wall measures 1.6 mm in thickness. A few echogenic floating debris were seen in the gallbladder lumen near its fundal region. No gallstones, wall thickening, or gross pericholecystic fluid noted. No evidence of gallbladder wall edema or signs of acute cholecystitis. Biliary Tree: Common bile duct: The common bile duct is within normal limits in caliber and not dilated. The common bile duct measures 3.7 mm in luminal caliber. No evidence of choledocholithiasis or biliary obstruction. Right kidney : Normal appearing, measures 11.08 mm in length with normal parenchymal echogenicity. No evidence of any hydronephrosis stone or cyst. IMPRESSION: 1. Hepatomegaly with diffuse parenchymal steatosis. 2. Few foci of floating intraluminal debris seen in the gallbladder, no cholelithiasis seen, needs clinical and alcaraz's sign correlation to assess for a remote possibility of evolving infective-inflammatory etiology. 3. Clinical correlation advised. Electronically signed by Adria Rodriguez 01-31-2025 02:01 AM -personally reviewed, US consistent with hepatic steatosis
--- NOTE | 2025-01-31 16:22 | Communication Note ---
From morning evaluation to afternoon, patient became steadily more confused, agitated, and restless requiring several doses of ativan without improvement. Phenobarbital and ativan given on floor without significant improvement. Already loaded with keppra in ED, although less likely to be helpful given nature of delirium tremens. Requiring 1 to 1 supervision on floor as well, fell x1 in PCU secondary to agitation. Concern for impending refractory delirium tremens at this time. Discussed with Dr. Webb, critical care attending, who recommending end tidal C02 monitoring, repeat load with phenobarbital to target ideal body weight, and agreed with transfer to ICU for higher level care. Transfer orders placed, end tidal CO2 monitoring and phenobarbital load ordered. Appreciate critical care consult and assistance in management. Date of Service: January 31, 2025
[2025-01-31] MEDS: ICU Protocol for HYPERglycemia SCH (16:35)
--- NOTE | 2025-01-31 16:52 | Critical Care Consultation ---
Date of Consultation January 31, 2025 Assessment & Plan (1) Alcohol withdrawal seizure: Reason Critically Ill: [] PLAN: Neuro: Agitated delirium consistent with clinical history of delirium tremens New onset seizure -Initial Hospital notes indicate neurology consult however this has not been ordered; patient will need neurology evaluation and likely driving privileges restricted -MRI without contrast obtained, Largely unremarkable likely will need contrast component yet which 1:04 PM at do not care well enough that I do not care yeah expected per se continue to observe and if she starts having we are going to trend her CBC and if she has a large volume output then let me know that she should facilitate this Elpidio is at her care she is. Out slightly tachycardia 100 but she we will continue to watch understood CBC right now so you can -Continued phenobarbital loading: Much more compliant per report during my evaluation -Additional 160 mg IV at 1830 and then second dose 3 hours later then transition to oral phenobarbital. Possible fall -CT scan result reviewed, mild central canal stenosis and foraminal stenosis without obvious fracture. -Patient has self discontinued his cervical collar numerous times and is also source of agitation. -Patient has had a negative CT scan on a [address] scanner the chance of him having a clinically significant lesion with a largely unremarkable CT is minimal, additionally the patient has not been in a cervical collar for several hours, he continues to move without issue has not expressed numbness or tingling, therefore I feel it is reasonable to continue without the cervical collar Resp: Continuous end-tidal CO2 monitoring CV: Continuous mortgage loan underwriter. ID: No indication for anti-infectives at this time GI/Nutrition: Hepatomegaly with steatosis and mild transaminitis -Suspect alcohol dependency Heme: Anemia NOS -Follow-up first Lyme anemia labs and peripheral smear DVT prophylaxis: 40 mg Lovenox daily subcu Endocrine: ICU hyperglycemia protocol Vascular access: Peripheral IVs Code Status: Full code Disposition: ICU for high-dose phenobarbital (2) Delirium tremens: (3) New onset seizure: (4) Anemia: Supervising Physician Co-Signing Physician Notes I have personally spent 35 minutes of critical care time in the direct ma nagement of this patient. This is a life/limb threatening event. This includes time spent evaluating patient, direct bedside care, chart review, placing orders, interpretation of diagnostic studies, discussion with consultants, patient, and/or family members regarding treatment decisions, as well as other required patient management activities. This time is exclusive of all separately billable procedures, and teaching time and separate from and in addition to any other critical care service time. History of Present Illness Reason for Consultation: Acute delirium tremens Attending Physician: Ortiz Esparza MD History of Present Illness History is largely obtained from prior records. Please see emergency room visit notes as well as initial H&P. I was contacted because the patient was having increasing agitation and not redirectable concerned he was going to have a subsequent seizure as there was reported 2 seizures yesterday which are presumptively thought secondary to acute alcohol withdrawal. I requested 130 mg of phenobarbital be given, during my evaluation patient is much more compliant resting comfortably in the room with end-tidal CO2 monitoring. Patient was started on antiepileptics and was given multiple doses of Ativan, it appears he has been given a total of 315 mg of phenobarbital last 12 hours which is less than 5 mg/kg body weight. Allergies Allergy/AdvReac Type Severity Reaction Status Date / Time No Known Allergies Allergy Unverified 08/03/24 15:20 Home Medications Medication Instructions Recorded Confirmed Type No Known Home Medications 08/03/24 08/03/24 History Patient History Social History Smoking Status: Current every day smoker Tobacco Type: Cigarettes Hx Alcohol Use: Yes Alcohol Intake Frequency Comment: Regularly Hx Substance Use: Yes Preferred Language: Upper Sorbian Communication Ability: Effective Current Living Situation: Alone Feels Safe at Home: Yes Assistive Devices: None Results & Data Results & Data Vital Signs (Past 12 Hours) Vital Signs Temp Pulse Pulse Resp BP BP Pulse Ox 01/31/25 15:22 36.8 C 55 L 16 120/74 99 01/31/25 11:18 36.8 C 53 L 16 127/80 97 01/31/25 08:38 76 20 119/67 01/31/25 07:12 37 C 76 18 119/67 97 O2 Del Method 01/31/25 15:22 Room Air 01/31/25 11:18 Room Air 01/31/25 08:38 01/31/25 07:12 Room Air Critical Care Results & Data Vital Signs (Past 12 Hours) Vital Signs Temp Pulse Pulse Resp BP BP Pulse Ox 01/31/25 16:53 01/31/25 16:47 01/31/25 16:40 53 L 01/31/25 16:24 15 96 01/31/25 16:12 48 L 15 97 01/31/25 15:59 126/83 01/31/25 15:59 126/83 01/31/25 15:59 126/83 01/31/25 15:59 126/83 01/31/25 15:59 126/83 01/31/25 15:59 126/83 01/31/25 15:59 126/83 01/31/25 15:59 126/83 01/31/25 15:59 126/83 01/31/25 15:59 126/83 01/31/25 15:22 36.8 C 55 L 16 120/74 99 01/31/25 11:18 36.8 C 53 L 16 127/80 97 01/31/25 08:38 76 20 119/67 01/31/25 07:12 37 C 76 18 119/67 97 Pulse Ox O2 Del Method O2 Del Method O2 Flow Rate O2 Flow Rate 01/31/25 16:53 97 Nasal Cannula 2 01/31/25 16:47 Nasal Cannula 2 01/31/25 16:40 01/31/25 16:24 01/31/25 16:12 01/31/25 15:59 01/31/25 15:59 01/31/25 15:59 01/31/25 15:59 01/31/25 15:59 01/31/25 15:59 01/31/25 15:59 01/31/25 15:59 01/31/25 15:59 01/31/25 15:59 01/31/25 15:22 Room Air 01/31/25 11:18 Room Air 01/31/25 08:38 01/31/25 07:12 Room Air Lab & Micro Results (Past 24 Hours) RBC 3.41 M/uL (4.70-6.10) L 01/31/25 WBC 6.91 K/ul (4.8-10.8) 01/31/25 Hgb 11.8 g/dl (14.0-18.0) L 01/31/25 Hct 33.5 % (42.0-52.0) L 01/31/25 MCV 98.2 fL (80.0-100.0) 01/31/25 MCH 34.6 pg (25.0-34.0) H 01/31/25 MCHC 35.2 g/dL (32.0-36.0) 01/31/25 RDW Standard Deviation 40.3 fL (36.4-46.3) 01/31/25 RDW Coefficient of Variation 11.2 % (11.5-14.5) L 01/31/25 Plt Count 117 K/uL (130-400) L 01/31/25 MPV 10.2 fL (9.4-12.4) 01/31/25 Na 137 mmol/L (136-145) 01/31/25 K 3.6 mmol/L (3.5-5.1) 01/31/25 Cl 106 mmol/L (98-107) 01/31/25 CO2 26 mmol/L (21-32) 01/31/25 Anion Gap 5 (3-11) 01/31/25 BUN 9 mg/dl (6-23) 01/31/25 Creatinine 0.56 mg/dl (0.6-1.4) L 01/31/25 BUN/Creatinine Ratio 16.1 (10-20) 01/31/25 Glu 84 mg/dl (70-99(Fasting)) 01/31/25 Ca 8.3 mg/dl (8.6-10.3) L 01/31/25 Phosphorus Level 3.2 mg/dl (2.5-4.9) 01/31/25 Total Bilirubin 1.3 mg/dl (0.2-1.0) H 01/31/25 Direct Bilirubin 0.3 mg/dl (0-0.2) H 01/31/25 AST 122 U/L (13-39) H 01/31/25 ALT 46 U/L (7-52) 01/31/25 Alkaline Phosphatase 216 U/L (34-104) H 01/31/25 TP 6.4 gm/dl (6.0-8.3) 01/31/25 Albumin 3.5 gm/dl (3.4-5.0) 01/31/25 Globulin 2.9 gm/dl (2.5-4.0) 01/31/25 Albumin/Globulin Ratio 1.2 (0.9-2) 01/31/25 Mg 2.1 mg/dl (1.7-2.4) 01/31/25 06:11 Calcium Level 8.3 mg/dl (8.6-10.3) L 01/31/25 06:11 Diagnostic Findings (Past 24 Hours) Chest X-Ray 01/30/25 16:55 EXAM: Radiograph of the Chest 1 View INDICATION: Trauma TECHNIQUE: Frontal view of the chest. COMPARISON: 09/30/2018 FINDINGS: Lungs and pleural spaces: No consolidation or pulmonary edema. No pleural effusion or pneumothorax. Heart: Shape and configuration within normal limits allowing for technique. Mediastinum: Normal contour. Bones/joints: Old right lateral seventh or eighth rib fracture. No acute osseous abnormality. Soft tissues: No abnormality noted. No radiopaque foreign body noted. Upper abdomen: No abnormality noted. IMPRESSION: No acute cardiopulmonary disease. ACT 112: N/A Electronically signed by Nay Murray 01-30-2025 5:[address] 01/30/25 16:56 EXAM: CT Head and Cervical Spine Without Intravenous Contrast INDICATION: Unwitnessed fall with loss of consciousness and confusion. TECHNIQUE: Axial computed tomography images of the head/brain and cervical spine without intravenous contrast. Sagittal and coronal reformatted images were created and reviewed. This CT exam was performed using one or more of the following dose reduction techniques: automated exposure control, adjustment of the mA and/or kV according to patient size, and/or use of iterative reconstruction technique. COMPARISON: No relevant prior studies available. FINDINGS: Limitations: None. Brain and extra-axial spaces: No abnormality noted. No hemorrhage. No significant white matter disease. No edema. No ventriculomegaly. Sinuses: There is mild chronic mucosal thickening of the left sinuses. No sinus fluid. Mastoid air cells: No mastoid effusion. Orbits: No significant abnormality noted. Vertebrae: There is diffuse mild to moderate facet arthrosis. Moderate spondylosis and mild uncal spurring C5-C6 and C6-C7. No fracture or significant subluxation. Discs/spinal canal/neural foramina: Mild to moderate disc space narrowing C5-C6 and C6-C7. There is mild ventral canal stenosis at C3-C4 and C4-C5. There is asymmetric mild to moderate right ventral canal and mild right foraminal stenosis at C5-C6 and C6-C7. Soft tissues: No significant abnormality noted. Vasculature: No acute abnormality noted. Lung apices: No significant abnormality noted. Pleural space: No visualized pleural effusion or pneumothorax. IMPRESSION: 1. No acute change in the brain. 2. Cervical degenerative changes without fracture. ACT 112: N/A Electronically signed by Nay Murray 01-30-2025 6:[address] 01/30/25 16:56 EXAM: CT Head and Cervical Spine Without Intravenous Contrast INDICATION: Unwitnessed fall with loss of consciousness and confusion. TECHNIQUE: Axial computed tomography images of the head/brain and cervical spine without intravenous contrast. Sagittal and coronal reformatted images were created and reviewed. This CT exam was performed using one or more of the following dose reduction techniques: automated exposure control, adjustment of the mA and/or kV according to patient size, and/or use of iterative reconstruction technique. COMPARISON: No relevant prior studies available. FINDINGS: Limitations: None. Brain and extra-axial spaces: No abnormality noted. No hemorrhage. No significant white matter disease. No edema. No ventriculomegaly. Sinuses: There is mild chronic mucosal thickening of the left sinuses. No sinus fluid. Mastoid air cells: No mastoid effusion. Orbits: No significant abnormality noted. Vertebrae: There is diffuse mild to moderate facet arthrosis. Moderate spondylosis and mild uncal spurring C5-C6 and C6-C7. No fracture or significant subluxation. Discs/spinal canal/neural foramina: Mild to moderate disc space narrowing C5-C6 and C6-C7. There is mild ventral canal stenosis at C3-C4 and C4-C5. There is asymmetric mild to moderate right ventral canal and mild right foraminal stenosis at C5-C6 and C6-C7. Soft tissues: No significant abnormality noted. Vasculature: No acute abnormality noted. Lung apices: No significant abnormality noted. Pleural space: No visualized pleural effusion or pneumothorax. IMPRESSION: 1. No acute change in the brain. 2. Cervical degenerative changes without fracture. ACT 112: N/A Electronically signed by Nay Murray 01-30-2025 6:08 PM Brain MRI 01/30/25 19:02 Exam(s): MRI HEAD Without Contrast EXAM: MR Head Without Intravenous Contrast CLINICAL HISTORY: Reason for exam: seizure. TECHNIQUE: Magnetic resonance images of the head/brain without intravenous contrast in multiple planes. COMPARISON: Prior head CT from January 30, 2025. FINDINGS: This study is limited secondary to motion artifact. Brain: Unremarkable. No mass. No hemorrhage. No acute infarct. The flow voids at the base of the brain are intact. Ventricles: Mild ventriculomegaly. Bones/joints: Unremarkable. No acute fracture. Sinuses: Chronic ethmoid, right sphenoid and left maxillary sinusitis. No acute sinusitis. Mastoid air cells: Unremarkable as visualized. No mastoid effusion. Orbits: Unremarkable as visualized. IMPRESSION: No evidence of acute intracranial pathology in this limited study. Electronically signed by: Yvette Jolly MD 01/30/25 23:29 PM Liver Ultrasound 01/31/25 00:00 EXAM: US liver CLINICAL HISTORY: Transaminitis, elevated liver function. TECHNIQUE: Limited ultrasound of the liver and gallbladder, including the right kidne,y was performed in greyscale and Doppler. Multiple images were obtained in transverse and longitudinal planes. COMPARISON: No prior studies are available for comparison. FINDINGS: Liver: An enlarged liver measuring 190.3 mm in craniocaudal length shows diffusely raised parenchymal echogenicity suggests fatty infiltration. No evidence of focal lesions, cysts, or masses. Hepatic vasculature appears normal. Gallbladder: Gallbladder size: The Gallbladder is visualized and appears normal in size and shape. Gallbladder wall measures 1.6 mm in thickness. A few echogenic floating debris were seen in the gallbladder lumen near its fundal region. No gallstones, wall thickening, or gross pericholecystic fluid noted. No evidence of gallbladder wall edema or signs of acute cholecystitis. Biliary Tree: Common bile duct: The common bile duct is within normal limits in caliber and not dilated. The common bile duct measures 3.7 mm in luminal caliber. No evidence of choledocholithiasis or biliary obstruction. Right kidney : Normal appearing, measures 11.08 mm in length with normal parenchymal echogenicity. No evidence of any hydronephrosis stone or cyst. IMPRESSION: 1. Hepatomegaly with diffuse parenchymal steatosis. 2. Few foci of floating intraluminal debris seen in the gallbladder, no cholelithiasis seen, needs clinical and alcaraz's sign correlation to assess for a remote possibility of evolving infective-inflammatory etiology. 3. Clinical correlation advised. Electronically signed by Adria Rodriguez 01-31-2025 02:01 AM I & O Totals 24 Hours 01/30/25 01/31/25 02/01/25 06:59 06:59 06:59 Intake Total 1999 1322.917 / 1322.917 Balance 1999 1322.917 / 1322.917 Cumulative 01/30/25 16:08 thru 01/31/25 16:52 Intake Total 3322.917 Balance 3322.917 RT Ventilator Mngmt (Last Documented) Ventilator Ordered Settings Respiratory Rate 15 01/31/25 16:24 Ventilator - PT Measurements Respiratory Rate 15 End-Tidal CO2 23 Coding Level of Care Code 51146 CRITICAL CARE 1ST 30-74M Diagnoses Alcohol withdrawal seizure F10.931; R56.9 Complication of substance-induced condition: with delirium Delirium tremens F10.931 New onset seizure R56.9 Anemia D64.9 (1) Alcohol withdrawal seizure Complication of substance-induced condition: with delirium Qualified Code(s): F10.931 - Alcohol use, unspecified with withdrawal delirium; R56.9 - Unspecified convulsions
[2025-01-31] MEDS ORDERED: PHENobarbital sodium 130 MG/ML VIAL IV PRN (17:14)
[2025-01-31] MEDS: PHENobarbital sodium 130 MG/ML VIAL IV SCH (18:33)
--- NOTE | 2025-01-31 22:21 | Communication Note ---
Date of Service: January 31, 2025 Patient sustained fall from bed, landing on all fours. He was assisted back to bed by RN. Patient apparently getting out of bed because "my brother is picking me up". I evaluated at bedside. He is AAOx3, denies dizziness, head trauma, headache, visual disturbance. Moving all 4 limbs. R knee superficial abrasion. Patient bending both knees without difficulty or pain. Continue close monitoring, no further work-up indicated. Coding Level of Care Code None
[2025-02-01] MEDS: PHENobarbitaL 30 MG TAB PO SCH (02:02)
[2025-02-01 05:08] LABS: Basophils # (auto) 0.02 K/uL (0.00-0.20); Basophils % (auto) 0.3 %; Eosinophils # (auto) 0.05 K/uL (0.00-0.50); Eosinophils % (auto) 0.7 %; Hematocrit (blood only) 35.3 % (42.0-52.0); Hemoglobin 11.9 g/dl (14.0-18.0); Immature Granulocytes # (auto) 0.05 K/uL (0.01-0.20); Immature Granulocytes % (auto) 0.7 %; Lymphocytes # (auto) 0.97 K/uL (1.20-3.40); Lymphocytes % (auto) 14.1 %; Mean Corpuscular Hemoglobin 33.3 pg (25.0-34.0); Mean Corpuscular Hgb Conc 33.7 g/dL (32.0-36.0); Mean Corpuscular Volume 98.9 fL (80.0-100.0); Mean Platelet Volume 10.5 fL (9.4-12.4); Monocytes # (auto) 0.56 K/uL (0.11-0.59); Monocytes % (auto) 8.2 %; Neutrophils # (auto) 5.22 K/uL (1.40-6.50); Platelet Count 115 K/uL (130-400); RDW Coefficient of Variation 10.7 % (11.5-14.5); RDW Standard Deviation 38.8 fL (36.4-46.3); Red Blood Count 3.57 M/uL (4.70-6.10); White Blood Count 6.87 K/ul (4.8-10.8)
[2025-02-01 05:22] LABS: BUN Creatinine Ratio 14.9 (10-20); Calcium 8.4 mg/dl (8.6-10.3); Creatinine Clr Calc Pharmacy 188.4 ml/min; Magnesium 1.9 mg/dl (1.7-2.4); Phosphorus 3.2 mg/dl (2.5-4.9)
[2025-02-01] MEDS ORDERED: DEXTROSE 50% 50 ML SYRINGE IV PRN (05:28)
[2025-02-01] MEDS ORDERED: GLUCAGON FOR INJ 1 MG VIAL SQ PRN (05:28)
[2025-02-01] MEDS ORDERED: GLUCOSE 40% GEL 15 GM TUBE PO PRN (05:28)
[2025-02-01] MEDS ORDERED: GLUCOSE 10 TAB/TUBE PO PRN (05:28)
[2025-02-01] MEDS ORDERED: CARBOHYDRATES FOR HYPOGLYCEMIA PO PRN (05:28)
[2025-02-01 05:30] LABS: INR 1.1 (0.9-1.1); Prothrombin Time 11.5 Seconds (9.0-12.0)
[2025-02-01 05:52] LABS: Folate (Folic Acid),Ser orPlas 19.92 ng/ml (>5.38)
[2025-02-01] MEDS: ENOXAPARIN INJ 40 MG/0.4 ML SYR SQ SCH (08:17)
--- NOTE | 2025-02-01 13:44 | Electrocardiogram Report ---
Test Reason : Blood Pressure : */* mmHG Vent. Rate : 86 BPM Atrial Rate : 86 BPM P-R Int : 140 ms QRS Dur : 98 ms QT Int : 412 ms P-R-T Axes : 69 81 63 degrees QTcB Int : 493 ms Normal sinus rhythm Prolonged QT Abnormal ECG When compared with ECG of 30-Sep-2018 11:37, No significant change was found Confirmed by Mariajose Perkins (Ale) on 02/01/2025 1:44:45 PM Referred By: NO PCP Confirmed By: Mariajose Perkins
--- NOTE | 2025-02-01 13:59 | Neurology Consultation ---
Date of Consultation February 01, 2025 Assessment & Plan (1) Alcohol withdrawal seizure: A 39 yo M w EtoH abuse admitted w EtoH withdrawal seizure. Luna w EtOH with drawl protocol . 6-day Ativan taper or other protocol is reasonable. Discussed EtOH cession. EEG as outpatient. Defer on inpatient EEG. Thiamine and B vitamin replacement. No driving per [place] state law for 6-months. Patient expressed understanding. Neuro follow up PRN. History of Present Illness Reason for Consultation: Seizure Requesting Physician: Dr. Billy Attending Physician: Ortiz Esparza MD History of Present Illness A 39 yo M w EtOH abuse admitted w new onset seizure. Seizure occurred yesterday at work. Woke in ambulance confused. Amnestic to the event. No history of epilpesy. Last dirnk was on day prior. No EtOH use yesterday. Allergies Allergy/AdvReac Type Severity Reaction Status Date / Time No Known Allergies Allergy Unverified 08/03/24 15:20 Home Medications Medication Instructions Recorded Confirmed Type No Known Home Medications 08/03/24 08/03/24 History Patient History Social History Smoking Status: Current every day smoker Tobacco Type: Cigarettes Hx Alcohol Use: Yes Alcohol Intake Frequency Comment: Regularly Hx Substance Use: Yes Preferred Language: Vietnamese Communication Ability: Effective Current Living Situation: Alone Feels Safe at Home: Yes Assistive Devices: None Physical Exam Physical Exam: EXAM: Constitutional: appearance normally developed Face: normocephalic and atraumatic Eyes: normal lids, normal conjunctiva Neck: supple Respiratory: normal effort Abdomen: non distended Skin: no rashes, lesions, or ulcers noted Psychiatric: normal mood and normal affect NEUROLOGIC EXAMINATION: Appearance: no acute distress Orientation: awake, alert and oriented x 3 Mental Status: alert Attention: normal Knowledge: appropriate Language: no aphasia Speech: no dysarthria Cranial Nerves: CN 2 - no visual defect on confrontation and pupils round, equal CN 3, 4, 6 - extra-ocular movements intact CN 5 - facial sensation intact CN 7 - no facial asymmetry CN 8 - intact hearing CN 9, 10 - palate symmetric CN 11 - good shoulder shrug CN 12 - tongue midline Gait: deferred Coordination: no ataxia with finger to nose testing Sensory: intact and symmetric to light touch Results & Data Vital Signs (Past 12 Hours) Vital Signs Temp Pulse Pulse Resp BP BP Pulse Ox 02/01/25 12:01 121/84 02/01/25 12:00 56 L 94 02/01/25 11:03 116 H 02/01/25 11:01 138/79 02/01/25 11:01 138/79 02/01/25 10:57 102 H 100 02/01/25 10:06 55 L 100 02/01/25 10:00 118/77 02/01/25 09:49 36.7 C 63 13 115/69 97 02/01/25 09:03 60 0 L 02/01/25 08:09 81 98 02/01/25 08:01 116/89 02/01/25 08:01 116/89 02/01/25 07:00 98/63 L 02/01/25 06:54 65 02/01/25 06:06 56 L 0 L 98 02/01/25 06:00 110/68 02/01/25 06:00 110/68 02/01/25 06:00 110/68 02/01/25 06:00 110/68 02/01/25 06:00 110/68 02/01/25 05:51 63 0 L 02/01/25 05:09 53 L 0 L 99 02/01/25 05:00 118/64 02/01/25 05:00 118/64 02/01/25 05:00 118/64 02/01/25 05:00 118/64 02/01/25 05:00 118/64 02/01/25 05:00 118/64 02/01/25 05:00 118/64 02/01/25 05:00 118/64 02/01/25 05:00 118/64 02/01/25 05:00 118/64 02/01/25 05:00 118/64 02/01/25 05:00 118/64 02/01/25 05:00 118/64 02/01/25 05:00 118/64 02/01/25 05:00 118/64 02/01/25 05:00 118/64 02/01/25 05:00 118/64 02/01/25 05:00 118/64 02/01/25 05:00 118/64 02/01/25 05:00 118/64 02/01/25 05:00 118/64 02/01/25 05:00 118/64 02/01/25 05:00 118/64 02/01/25 04:54 59 L 0 L 87 L 02/01/25 04:09 53 L 0 L 99 02/01/25 04:00 107/63 02/01/25 04:00 107/63 02/01/25 04:00 107/63 02/01/25 04:00 107/63 02/01/25 04:00 107/63 02/01/25 04:00 107/63 02/01/25 04:00 107/63 02/01/25 04:00 107/63 02/01/25 04:00 107/63 02/01/25 04:00 107/63 02/01/25 04:00 107/63 02/01/25 04:00 107/63 02/01/25 04:00 107/63 02/01/25 04:00 107/63 02/01/25 04:00 107/63 02/01/25 04:00 107/63 02/01/25 04:00 107/63 02/01/25 04:00 107/63 02/01/25 04:00 107/63 02/01/25 04:00 107/63 02/01/25 04:00 107/63 02/01/25 04:00 107/63 02/01/25 04:00 107/63 02/01/25 04:00 107/63 02/01/25 04:00 36.6 C 02/01/25 03:39 51 L 0 L 97 02/01/25 03:00 108/71 02/01/25 03:00 108/71 02/01/25 03:00 108/71 02/01/25 03:00 108/71 02/01/25 03:00 108/71 02/01/25 03:00 108/71 02/01/25 03:00 108/71 02/01/25 03:00 108/71 02/01/25 03:00 108/71 02/01/25 03:00 108/71 02/01/25 03:00 108/71 02/01/25 03:00 108/71 02/01/25 03:00 108/71 02/01/25 03:00 108/71 02/01/25 03:00 108/71 02/01/25 03:00 108/71 02/01/25 03:00 108/71 02/01/25 03:00 108/71 02/01/25 03:00 108/71 02/01/25 03:00 108/71 02/01/25 03:00 108/71 02/01/25 03:00 108/71 02/01/25 03:00 108/71 02/01/25 03:00 108/71 O2 Del Method 02/01/25 12:01 02/01/25 12:00 Room Air 02/01/25 11:03 02/01/25 11:01 02/01/25 11:01 02/01/25 10:57 Room Air 02/01/25 10:06 Room Air 02/01/25 10:00 02/01/25 09:49 Room Air 02/01/25 09:03 02/01/25 08:09 Room Air 02/01/25 08:01 02/01/25 08:01 02/01/25 07:00 02/01/25 06:54 02/01/25 06:06 02/01/25 06:00 02/01/25 06:00 02/01/25 06:00 02/01/25 06:00 02/01/25 06:00 02/01/25 05:51 02/01/25 05:09 02/01/25 05:00 02/01/25 05:00 02/01/25 05:00 02/01/25 05:00 02/01/25 05:00 02/01/25 05:00 02/01/25 05:00 02/01/25 05:00 02/01/25 05:00 02/01/25 05:00 02/01/25 05:00 02/01/25 05:00 02/01/25 05:00 02/01/25 05:00 02/01/25 05:00 02/01/25 05:00 02/01/25 05:00 02/01/25 05:00 02/01/25 05:00 02/01/25 05:00 02/01/25 05:00 02/01/25 05:00 02/01/25 05:00 02/01/25 04:54 02/01/25 04:09 02/01/25 04:00 02/01/25 04:00 02/01/25 04:00 02/01/25 04:00 02/01/25 04:00 02/01/25 04:00 02/01/25 04:00 02/01/25 04:00 02/01/25 04:00 02/01/25 04:00 02/01/25 04:00 02/01/25 04:00 02/01/25 04:00 02/01/25 04:00 02/01/25 04:00 02/01/25 04:00 02/01/25 04:00 02/01/25 04:00 02/01/25 04:00 02/01/25 04:00 02/01/25 04:00 02/01/25 04:00 02/01/25 04:00 02/01/25 04:00 02/01/25 04:00 02/01/25 03:39 02/01/25 03:00 02/01/25 03:00 02/01/25 03:00 02/01/25 03:00 02/01/25 03:00 02/01/25 03:00 02/01/25 03:00 02/01/25 03:00 02/01/25 03:00 02/01/25 03:00 02/01/25 03:00 02/01/25 03:00 02/01/25 03:00 02/01/25 03:00 02/01/25 03:00 02/01/25 03:00 02/01/25 03:00 02/01/25 03:00 02/01/25 03:00 02/01/25 03:00 02/01/25 03:00 02/01/25 03:00 02/01/25 03:00 02/01/25 03:00 Diagnostic Findings MRI brain reviewed. No acute stroke or acute intracranial process. (1) Alcohol withdrawal seizure Complication of substance-induced condition: with delirium Qualified Code(s): F10.931 - Alcohol use, unspecified with withdrawal delirium; R56.9 - Unspecified convulsions
--- NOTE | 2025-02-01 14:17 | Hospitalist Progress Note ---
Date of Service February 01, 2025 Assessment & Plan (1) Delirium tremens: Plan: -patient had 2 seizures, one prior to arrival, one in ED, both witnessed -no prior seizures or seizure hx, drug screen positive for THC only, negative alcohol level supportive of DT -no nidus of infection, MRI head unremarkable -strongly suspect 2/2 alcohol withdrawal, other etiologies less likely, loaded with keppra in ED -overnight given 4 mg of ativan, AWSS apepars to be downtrending Plan: -appreciate neurology consult -continue 500 bid of keppra outpatient -discussed alcohol cessation, risks and benefits explained, patient does not have any intention of stopping alcohol use at this time -continue thiamine, folic acid -continue phenobarbital and prn ativan -appreciate critical care assistance, AWSS appears to be improving (2) New onset seizure: Plan: -see above (3) Postictal psychosis: Plan: -improved (4) Transaminitis: Plan: -hepatic steatosis vs. cirrhosis Plan I spent a total of 50 minutes in direct patient care, including [id number] time with the patient and/or family, reviewing medical records, ordering and reviewing diagnostic tests, and coordinating care with other healthcare providers. This time includes: history taking, physical examination, medical decision making, counseling, ECG interpretation, imaging interpretation, lab interpretation, orders, and education, excluding time spent in the performance of separately billed services. Admission and Anticipated Discharge Date Admission Date: January 30, 2025 Subjective Patient seen and examined at bedside. Patient states he feels he can go home. He states he does not believe his alcohol withdrawal is severe. States he just wants to "hang out with his friends at home." States he will likely continue drinking at home. Of note, patient moving around in room, appears very anxious and tremulousness. Review of Systems Review of Systems: CONSTITUTIONAL: fatigue, tremulousness EYES: Patient denies any visual symptoms. EARS, NOSE, AND THROAT: No difficulties with hearing. No symptoms of rhinitis or sore throat. CARDIOVASCULAR: Patient denies chest pains, palpitations, orthopnea and paroxysmal nocturnal dyspnea. RESPIRATORY: No dyspnea on exertion, no wheezing or cough. GI: No nausea, vomiting, diarrhea, constipation, abdominal pain, hematochezia or melena. : No urinary hesitancy or dribbling. No nocturia or urinary frequency. No abnormal urethral discharge. MUSCULOSKELETAL: No myalgias or arthralgias. NEUROLOGIC: No chronic headaches, no seizures. Patient denies numbness, tingling or weakness. PSYCHIATRIC: Patient denies problems with mood disturbance. No problems with anxiety. ENDOCRINE: No excessive urination or excessive thirst. DERMATOLOGIC: Patient denies any rashes or skin changes. Physical Exam Physical Exam: Gen: A&O 3 NAD HEENT: NCAT, EOMI, not icteric. External ears normal. No rhinorrhea. Moist mucous membranes. Neck: Supple, full range of motion, no observable masses, No meningeal sign. Lungs: No Respiratory distress. CV: RRR, no edema. Abdomen: Soft, nondistended, No rebound tenderness. MSK: No joint swelling, no redness. Skin: No rashes, petechiae, lesions. Normal color per patient. Neuro: Normal Gait, Grossly intact. Tremulousness noted, bilateral tremor noted, moving around vigorouslessly in room Psych: does not exhbit understanding of consequences of leaving hospital or of his alcohol use Results & Data Results & Data Vital Signs (Past 12 Hours) Vital Signs Temp Pulse Pulse Resp BP BP Pulse Ox 02/01/25 12:01 121/84 02/01/25 12:00 56 L 94 02/01/25 11:03 116 H 02/01/25 11:01 138/79 02/01/25 11:01 138/79 02/01/25 10:57 102 H 100 02/01/25 10:06 55 L 100 02/01/25 10:00 118/77 02/01/25 09:49 36.7 C 63 13 115/69 97 02/01/25 09:03 60 0 L 02/01/25 08:09 81 98 02/01/25 08:01 116/89 02/01/25 08:01 116/89 02/01/25 07:00 98/63 L 02/01/25 06:54 65 02/01/25 06:06 56 L 0 L 98 02/01/25 06:00 110/68 02/01/25 06:00 110/68 02/01/25 06:00 110/68 02/01/25 06:00 110/68 02/01/25 06:00 110/68 02/01/25 05:51 63 0 L 02/01/25 05:09 53 L 0 L 99 02/01/25 05:00 118/64 02/01/25 05:00 118/64 02/01/25 05:00 118/64 02/01/25 05:00 118/64 02/01/25 05:00 118/64 02/01/25 05:00 118/64 02/01/25 05:00 118/64 02/01/25 05:00 118/64 02/01/25 05:00 118/64 02/01/25 05:00 118/64 02/01/25 05:00 118/64 02/01/25 05:00 118/64 02/01/25 05:00 118/64 02/01/25 05:00 118/64 02/01/25 05:00 118/64 02/01/25 05:00 118/64 02/01/25 05:00 118/64 02/01/25 05:00 118/64 02/01/25 05:00 118/64 02/01/25 05:00 118/64 02/01/25 05:00 118/64 02/01/25 05:00 118/64 02/01/25 05:00 118/64 02/01/25 04:54 59 L 0 L 87 L 02/01/25 04:09 53 L 0 L 99 02/01/25 04:00 107/63 02/01/25 04:00 107/63 02/01/25 04:00 107/63 02/01/25 04:00 107/63 02/01/25 04:00 107/63 02/01/25 04:00 107/63 02/01/25 04:00 107/63 02/01/25 04:00 107/63 02/01/25 04:00 107/63 02/01/25 04:00 107/63 02/01/25 04:00 107/63 02/01/25 04:00 107/63 02/01/25 04:00 107/63 02/01/25 04:00 107/63 02/01/25 04:00 107/63 02/01/25 04:00 107/63 02/01/25 04:00 107/63 02/01/25 04:00 107/63 02/01/25 04:00 107/63 02/01/25 04:00 107/63 02/01/25 04:00 107/63 02/01/25 04:00 107/63 02/01/25 04:00 107/63 02/01/25 04:00 107/63 02/01/25 04:00 36.6 C 02/01/25 03:39 51 L 0 L 97 02/01/25 03:00 108/71 02/01/25 03:00 108/71 02/01/25 03:00 108/71 02/01/25 03:00 108/71 02/01/25 03:00 108/71 02/01/25 03:00 108/71 02/01/25 03:00 108/71 02/01/25 03:00 108/71 02/01/25 03:00 108/71 02/01/25 03:00 108/71 02/01/25 03:00 108/71 02/01/25 03:00 108/71 02/01/25 03:00 108/71 02/01/25 03:00 108/71 02/01/25 03:00 108/71 02/01/25 03:00 108/71 02/01/25 03:00 108/71 02/01/25 03:00 108/71 02/01/25 03:00 108/71 02/01/25 03:00 108/71 02/01/25 03:00 108/71 02/01/25 03:00 108/71 02/01/25 03:00 108/71 02/01/25 03:00 108/71 O2 Del Method 02/01/25 12:01 02/01/25 12:00 Room Air 02/01/25 11:03 02/01/25 11:01 02/01/25 11:01 02/01/25 10:57 Room Air 02/01/25 10:06 Room Air 02/01/25 10:00 02/01/25 09:49 Room Air 02/01/25 09:03 02/01/25 08:09 Room Air 02/01/25 08:01 02/01/25 08:01 02/01/25 07:00 02/01/25 06:54 02/01/25 06:06 02/01/25 06:00 02/01/25 06:00 02/01/25 06:00 02/01/25 06:00 02/01/25 06:00 02/01/25 05:51 02/01/25 05:09 02/01/25 05:00 02/01/25 05:00 02/01/25 05:00 02/01/25 05:00 02/01/25 05:00 02/01/25 05:00 02/01/25 05:00 02/01/25 05:00 02/01/25 05:00 02/01/25 05:00 02/01/25 05:00 02/01/25 05:00 02/01/25 05:00 02/01/25 05:00 02/01/25 05:00 02/01/25 05:00 02/01/25 05:00 02/01/25 05:00 02/01/25 05:00 02/01/25 05:00 02/01/25 05:00 02/01/25 05:00 02/01/25 05:00 02/01/25 04:54 02/01/25 04:09 02/01/25 04:00 02/01/25 04:00 02/01/25 04:00 02/01/25 04:00 02/01/25 04:00 02/01/25 04:00 02/01/25 04:00 02/01/25 04:00 02/01/25 04:00 02/01/25 04:00 02/01/25 04:00 02/01/25 04:00 02/01/25 04:00 02/01/25 04:00 02/01/25 04:00 02/01/25 04:00 02/01/25 04:00 02/01/25 04:00 02/01/25 04:00 02/01/25 04:00 02/01/25 04:00 02/01/25 04:00 02/01/25 04:00 02/01/25 04:00 02/01/25 04:00 02/01/25 03:39 02/01/25 03:00 02/01/25 03:00 02/01/25 03:00 02/01/25 03:00 02/01/25 03:00 02/01/25 03:00 02/01/25 03:00 02/01/25 03:00 02/01/25 03:00 02/01/25 03:00 02/01/25 03:00 02/01/25 03:00 02/01/25 03:00 02/01/25 03:00 02/01/25 03:00 02/01/25 03:00 02/01/25 03:00 02/01/25 03:00 02/01/25 03:00 02/01/25 03:00 02/01/25 03:00 02/01/25 03:00 02/01/25 03:00 02/01/25 03:00 Laboratory Results -personally reviewed, creatinine below baseline Medications Administered Enoxaparin Sodium (Enoxaparin Inj 40 Mg/0.4 Ml Syr) 40 mg SQ QAM [facility] Stop: 03/03/25 08:59 Last Admin: 02/01/25 08:17 Dose: 40 mg Documented By: LUPE Folic Acid (Folic Acid 1 Mg Tab) 1 mg PO QAM [facility] Stop: 03/02/25 08:59 Last Admin: 02/01/25 12:25 Dose: Not Given Documented By: Admin: 01/31/25 07:53 Dose: 1 mg Documented By: ALONDRA Levetiracetam (Levetiracetam 500 Mg/5 Ml Vial 500mg) 500 mg IV Q12H [facility] Stop: 03/01/25 20:59 Last Admin: 02/01/25 08:17 Dose: 500 mg Documented By: Admin: 01/31/25 20:45 Dose: 500 mg Documented By: Admin: 01/31/25 09:48 Dose: 500 mg Documented By: Admin: 01/30/25 23:01 Dose: 500 mg Documented By: HODAN Miscellaneous (Icu Protocol For Hyperglycemia) 1 each N/A ACHS [facility] Stop: 02/02/25 16:29 Last Admin: 02/01/25 12:26 Dose: Not Given Documented By: Admin: 02/01/25 08:12 Dose: Not Given Documented By: Admin: 01/31/25 20:45 Dose: 1 each Documented By: Admin: 01/31/25 16:35 Dose: 1 each Documented By: LUPE Multivitamins (Multivitamin Tab) 1 tab PO QAM [facility] Stop: 03/02/25 08:59 Last Admin: 02/01/25 12:25 Dose: Not Given Documented By: Admin: 01/31/25 07:51 Dose: 1 tab Documented By: ALONDRA Phenobarbital (Phenobarbital 30 Mg Tab) 60 mg PO Q12H [facility] Stop: 02/01/25 14:31 Last Admin: 02/01/25 02:02 Dose: 60 mg Documented By: ORION Thiamine HCl (Thiamine Hcl 100 Mg Tab) 100 mg PO QAM [facility] Stop: 03/02/25 08:59 Last Admin: 02/01/25 12:26 Dose: Not Given Documented By: Admin: 01/31/25 07:53 Dose: 100 mg Documented By: ALONDRA
--- NOTE | 2025-02-01 15:41 | Critical Care Progress Note ---
Date of Service February 01, 2025 Assessment & Plan (1) Alcohol withdrawal seizure: Plan: PLAN: Neuro: Agitated delirium consistent with clinical history of delirium tremens New onset seizure -Reviewed neurology notes Possible fall -No clinical evidence to suggest ligamentous cervical spine injury Delirium tremens -Transition to oral taper Resp: Continuous end-tidal CO2 monitoring CV: Continuous financial project manager. ID: No indication for anti-infectives at this time GI/Nutrition: Hepatomegaly with steatosis and mild transaminitis -Suspect alcohol dependency Heme: Anemia NOS -Follow-up first Lyme anemia labs and peripheral smear DVT prophylaxis: 40 mg Lovenox daily subcu Endocrine: ICU hyperglycemia protocol Vascular access: Peripheral IVs Code Status: Full code Disposition: Stable for downgrade out of ICU (2) Delirium tremens: (3) New onset seizure: (4) Anemia: Admission and Anticipated Discharge Date Admission Date: January 30, 2025 Subjective No significant events overnight, improvement in psychomotor agitation Physical Exam Physical Exam: General: Alert. nontoxic. Skin: Warm, dry, Head: Atraumatic Ears, nose, mouth and throat: airway patent Cardiovascular: Normal peripheral perfusion Respiratory: no respiratory distress Gastrointestinal: Non distended Musculoskeletal: No deformity Results & Data Results & Data Vital Signs (Past 12 Hours) Vital Signs Temp Pulse Pulse Resp BP BP Pulse Ox 02/01/25 14:48 142/90 H 02/01/25 14:45 0 L 02/01/25 14:00 57 L 02/01/25 14:00 118/83 02/01/25 13:03 57 L 97 02/01/25 13:00 121/71 02/01/25 12:45 58 L 98 02/01/25 12:01 121/84 02/01/25 12:00 56 L 94 02/01/25 11:03 116 H 02/01/25 11:01 138/79 02/01/25 11:01 138/79 02/01/25 10:57 102 H 100 02/01/25 10:06 55 L 100 02/01/25 10:00 118/77 02/01/25 09:49 36.7 C 63 13 115/69 97 02/01/25 09:03 60 0 L 02/01/25 08:09 81 98 02/01/25 08:01 116/89 02/01/25 08:01 116/89 02/01/25 07:00 98/63 L 02/01/25 06:54 65 02/01/25 06:06 56 L 0 L 98 02/01/25 06:00 110/68 02/01/25 06:00 110/68 02/01/25 06:00 110/68 02/01/25 06:00 110/68 02/01/25 06:00 110/68 02/01/25 05:51 63 0 L 02/01/25 05:09 53 L 0 L 99 02/01/25 05:00 118/64 02/01/25 05:00 118/64 02/01/25 05:00 118/64 02/01/25 05:00 118/64 02/01/25 05:00 118/64 02/01/25 05:00 118/64 02/01/25 05:00 118/64 02/01/25 05:00 118/64 02/01/25 05:00 118/64 02/01/25 05:00 118/64 02/01/25 05:00 118/64 02/01/25 05:00 118/64 02/01/25 05:00 118/64 02/01/25 05:00 118/64 02/01/25 05:00 118/64 02/01/25 05:00 118/64 02/01/25 05:00 118/64 02/01/25 05:00 118/64 02/01/25 05:00 118/64 02/01/25 05:00 118/64 02/01/25 05:00 118/64 02/01/25 05:00 118/64 02/01/25 05:00 118/64 02/01/25 04:54 59 L 0 L 87 L 02/01/25 04:09 53 L 0 L 99 02/01/25 04:00 107/63 02/01/25 04:00 107/63 02/01/25 04:00 107/63 02/01/25 04:00 107/63 02/01/25 04:00 107/63 02/01/25 04:00 107/63 02/01/25 04:00 107/63 02/01/25 04:00 107/63 02/01/25 04:00 107/63 02/01/25 04:00 107/63 02/01/25 04:00 10763 02/01/25 04:00 10763 02/01/25 04:00 10763 02/01/25 04:00 10763 02/01/25 04:00 63 02/01/25 04:00 63 02/01/25 04:00 10763 02/01/25 04:00 63 02/01/25 04:00 63 02/01/25 04:00 63 02/01/25 04:00 63 02/01/25 04:00 10763 02/01/25 04:00 10763 02/01/25 04:00 10763 02/01/25 04:00 36.6 C 02/01/25 03:39 51 L 0 L 97 O2 Del Method 02/01/25 14:48 02/01/25 14:45 02/01/25 14:00 02/01/25 14:00 02/01/25 13:03 Room Air 02/01/25 13:00 02/01/25 12:45 Room Air 02/01/25 12:01 02/01/25 12:00 Room Air 02/01/25 11:03 02/01/25 11:01 02/01/25 11:01 02/01/25 10:57 Room Air 02/01/25 10:06 Room Air 02/01/25 10:00 02/01/25 09:49 Room Air 02/01/25 09:03 02/01/25 08:09 Room Air 02/01/25 08:01 02/01/25 08:01 02/01/25 07:00 02/01/25 06:54 02/01/25 06:06 02/01/25 06:00 02/01/25 06:00 02/01/25 06:00 02/01/25 06:00 02/01/25 06:00 02/01/25 05:51 02/01/25 05:09 02/01/25 05:00 02/01/25 05:00 02/01/25 05:00 02/01/25 05:00 02/01/25 05:00 02/01/25 05:00 02/01/25 05:00 02/01/25 05:00 02/01/25 05:00 02/01/25 05:00 02/01/25 05:00 02/01/25 05:00 02/01/25 05:00 02/01/25 05:00 02/01/25 05:00 02/01/25 05:00 02/01/25 05:00 02/01/25 05:00 02/01/25 05:00 02/01/25 05:00 02/01/25 05:00 02/01/25 05:00 02/01/25 05:00 02/01/25 04:54 02/01/25 04:09 02/01/25 04:00 02/01/25 04:00 02/01/25 04:00 02/01/25 04:00 02/01/25 04:00 02/01/25 04:00 02/01/25 04:00 02/01/25 04:00 02/01/25 04:00 02/01/25 04:00 02/01/25 04:00 02/01/25 04:00 02/01/25 04:00 02/01/25 04:00 02/01/25 04:00 02/01/25 04:00 02/01/25 04:00 02/01/25 04:00 02/01/25 04:00 02/01/25 04:00 02/01/25 04:00 02/01/25 04:00 02/01/25 04:00 02/01/25 04:00 02/01/25 04:00 02/01/25 03:39 Critical Care Results & Data Vital Signs (Past 12 Hours) Vital Signs Temp Pulse Pulse Resp BP BP Pulse Ox 02/01/25 14:48 142/90 H 02/01/25 14:45 0 L 02/01/25 14:00 57 L 02/01/25 14:00 118/83 02/01/25 13:03 57 L 97 02/01/25 13:00 121/71 02/01/25 12:45 58 L 98 02/01/25 12:01 121/84 02/01/25 12:00 56 L 94 02/01/25 11:03 116 H 02/01/25 11:01 138/79 02/01/25 11:01 138/79 02/01/25 10:57 102 H 100 02/01/25 10:06 55 L 100 02/01/25 10:00 118/77 02/01/25 09:49 36.7 C 63 13 115/69 97 02/01/25 09:03 60 0 L 02/01/25 08:09 81 98 02/01/25 08:01 116/89 02/01/25 08:01 116/89 02/01/25 07:00 98/63 L 02/01/25 06:54 65 02/01/25 06:06 56 L 0 L 98 02/01/25 06:00 110/68 02/01/25 06:00 110/68 02/01/25 06:00 110/68 02/01/25 06:00 110/68 02/01/25 06:00 110/68 02/01/25 05:51 63 0 L 02/01/25 05:09 53 L 0 L 99 02/01/25 05:00 118/64 02/01/25 05:00 118/64 02/01/25 05:00 118/64 02/01/25 05:00 118/64 02/01/25 05:00 118/64 02/01/25 05:00 118/64 02/01/25 05:00 118/64 02/01/25 05:00 118/64 02/01/25 05:00 118/64 02/01/25 05:00 118/64 02/01/25 05:00 118/64 02/01/25 05:00 118/64 02/01/25 05:00 118/64 02/01/25 05:00 118/64 02/01/25 05:00 118/64 02/01/25 05:00 118/64 02/01/25 05:00 118/64 02/01/25 05:00 118/64 02/01/25 05:00 118/64 02/01/25 05:00 118/64 02/01/25 05:00 118/64 02/01/25 05:00 118/64 02/01/25 05:00 118/64 02/01/25 04:54 59 L 0 L 87 L 02/01/25 04:09 53 L 0 L 99 02/01/25 04:00 107/63 02/01/25 04:00 107/63 02/01/25 04:00 10763 02/01/25 04:00 10763 02/01/25 04:00 10763 02/01/25 04:00 10763 02/01/25 04:00 10763 02/01/25 04:00 10763 02/01/25 04:00 10763 02/01/25 04:00 10763 02/01/25 04:00 10763 02/01/25 04:00 10763 02/01/25 04:00 10763 02/01/25 04:00 10763 02/01/25 04:00 10763 02/01/25 04:00 10763 02/01/25 04:00 10763 02/01/25 04:00 10763 02/01/25 04:00 10763 02/01/25 04:00 10702/01/25 04:00 02/01/25 04:00 02/01/25 04:00 02/01/25 04:00 10702/01/25 04:00 36.6 C O2 Del Method 02/01/25 14:48 02/01/25 14:45 02/01/25 14:00 02/01/25 14:00 02/01/25 13:03 Room Air 02/01/25 13:00 02/01/25 12:45 Room Air 02/01/25 12:01 02/01/25 12:00 Room Air 02/01/25 11:03 02/01/25 11:01 02/01/25 11:01 02/01/25 10:57 Room Air 02/01/25 10:06 Room Air 02/01/25 10:00 02/01/25 09:49 Room Air 02/01/25 09:03 02/01/25 08:09 Room Air 02/01/25 08:01 02/01/25 08:01 02/01/25 07:00 02/01/25 06:54 02/01/25 06:06 02/01/25 06:00 02/01/25 06:00 02/01/25 06:00 02/01/25 06:00 02/01/25 06:00 02/01/25 05:51 02/01/25 05:09 02/01/25 05:00 02/01/25 05:00 02/01/25 05:00 02/01/25 05:00 02/01/25 05:00 02/01/25 05:00 02/01/25 05:00 02/01/25 05:00 02/01/25 05:00 02/01/25 05:00 02/01/25 05:00 02/01/25 05:00 02/01/25 05:00 02/01/25 05:00 02/01/25 05:00 02/01/25 05:00 02/01/25 05:00 02/01/25 05:00 02/01/25 05:00 02/01/25 05:00 02/01/25 05:00 02/01/25 05:00 02/01/25 05:00 02/01/25 04:54 02/01/25 04:09 02/01/25 04:00 02/01/25 04:00 02/01/25 04:00 02/01/25 04:00 02/01/25 04:00 02/01/25 04:00 02/01/25 04:00 02/01/25 04:00 02/01/25 04:00 02/01/25 04:00 02/01/25 04:00 02/01/25 04:00 02/01/25 04:00 02/01/25 04:00 02/01/25 04:00 02/01/25 04:00 02/01/25 04:00 02/01/25 04:00 02/01/25 04:00 02/01/25 04:00 02/01/25 04:00 02/01/25 04:00 02/01/25 04:00 02/01/25 04:00 02/01/25 04:00 Lab & Micro Results (Past 24 Hours) RBC 3.57 M/uL (4.70-6.10) L 02/01/25 WBC 6.87 K/ul (4.8-10.8) 02/01/25 Hgb 11.9 g/dl (14.0-18.0) L 02/01/25 Hct 35.3 % (42.0-52.0) L 02/01/25 MCV 98.9 fL (80.0-100.0) 02/01/25 MCH 33.3 pg (25.0-34.0) 02/01/25 MCHC 33.7 g/dL (32.0-36.0) 02/01/25 RDW Standard Deviation 38.8 fL (36.4-46.3) 02/01/25 RDW Coefficient of Variation 10.7 % (11.5-14.5) L 02/01/25 Plt Count 115 K/uL (130-400) L 02/01/25 MPV 10.5 fL (9.4-12.4) 02/01/25 Neutrophils (%) (Auto) 76.0 % 02/01/25 Lymphocytes (%) (Auto) 14.1 % 02/01/25 Monocytes # (Auto) 0.56 K/uL (0.11-0.59) 02/01/25 Eosinophils # (Auto) 0.05 K/uL (0.00-0.50) 02/01/25 Immature Granulocyte % (Auto) 0.7 % 02/01/25 Neutrophils # (Auto) 5.22 K/uL (1.40-6.50) 02/01/25 Lymphocytes # (Auto) 0.97 K/uL (1.20-3.40) L 02/01/25 Monocytes # (Auto) 0.56 K/uL (0.11-0.59) 02/01/25 Eosinophils # (Auto) 0.05 K/uL (0.00-0.50) 02/01/25 Basophils # (Auto) 0.02 K/uL (0.00-0.20) 02/01/25 Immature Granulocyte # (Auto) 0.05 K/uL (0.01-0.20) 5 Na 134 mmol/L (136-145) L 02/01/25 K 4.0 mmol/L (3.5-5.1) 02/01/25 Cl 101 mmol/L (98-107) 02/01/25 CO2 24 mmol/L (21-32) 02/01/25 Anion Gap 9 (3-11) 02/01/25 BUN 7 mg/dl (6-23) 02/01/25 Creatinine 0.47 mg/dl (0.6-1.4) L 02/01/25 BUN/Creatinine Ratio 14.9 (10-20) 02/01/25 Glu 68 mg/dl (70-99(Fasting)) L 02/01/25 Ca 8.4 mg/dl (8.6-10.3) L 02/01/25 Phosphorus Level 3.2 mg/dl (2.5-4.9) 02/01/25 Mg 1.9 mg/dl (1.7-2.4) 02/01/25 04:32 Calcium Level 8.4 mg/dl (8.6-10.3) L 02/01/25 04:32 Prothromb Time International Ratio 1.1 (0.9-1.1) 02/01/25 04:3 2 I & O Totals 24 Hours 01/31/25 02/01/25 02/02/25 06:59 06:59 06:59 Intake Total 1999 2922.917 / 2922.917 Output Total 1949 / 1949 Balance 1999 972.917 / 972.917 Cumulative 01/30/25 16:08 thru 02/01/25 06:00 Intake Total 4922.917 Output Total 1950 Balance 2972.917 RT Ventilator Mngmt (Last Documented) Ventilator Ordered Settings Respiratory Rate 0 02/01/25 14:45 Ventilator - PT Measurements Respiratory Rate 0 End-Tidal CO2 21 Coding Level of Care Code 64738 SUB INP/OBS CARE 3/50MIN Diagnoses Alcohol withdrawal seizure F10.931; R56.9 Complication of substance-induced condition: with delirium Delirium tremens F10.931 New onset seizure R56.9 Anemia D64.9 (1) Alcohol withdrawal seizure Complication of substance-induced condition: with delirium Qualified Code(s): F10.931 - Alcohol use, unspecified with withdrawal delirium; R56.9 - Unspecified convulsions
[2025-02-02] MEDS: PHENobarbitaL 30 MG TAB PO SCH (01:54)
[2025-02-02] MEDS: NICOTINE 21 MG/24 HR TDSY TD SCH (03:31)
[2025-02-02 05:33] LABS: Basophils # (auto) 0.02 K/uL (0.00-0.20); Basophils % (auto) 0.3 %; Eosinophils # (auto) 0.04 K/uL (0.00-0.50); Eosinophils % (auto) 0.6 %; Hemoglobin 12.2 g/dl (14.0-18.0); Immature Granulocytes # (auto) 0.05 K/uL (0.01-0.20); Immature Granulocytes % (auto) 0.8 %; Lymphocytes % (auto) 14.1 %; Mean Corpuscular Hemoglobin 33.8 pg (25.0-34.0); Mean Corpuscular Hgb Conc 34.9 g/dL (32.0-36.0); Mean Platelet Volume 10.7 fL (9.4-12.4); Monocytes # (auto) 0.64 K/uL (0.11-0.59); Neutrophils # (auto) 4.72 K/uL (1.40-6.50); Neutrophils % (auto) 74.2 %; Platelet Count 137 K/uL (130-400); RDW Coefficient of Variation 10.6 % (11.5-14.5); RDW Standard Deviation 38.1 fL (36.4-46.3); Red Blood Count 3.61 M/uL (4.70-6.10); White Blood Count 6.37 K/ul (4.8-10.8)
[2025-02-02 05:49] LABS: BUN Creatinine Ratio 9.1 (10-20); Calcium 8.4 mg/dl (8.6-10.3); Magnesium 1.8 mg/dl (1.7-2.4); Potassium 3.1 mmol/L (3.5-5.1)
[2025-02-02 05:56] LABS: Prothrombin Time 11.1 Seconds (9.0-12.0)
[2025-02-02] MEDS: levETIRAcetam ORAL SOLN 100MG/ML PO SCH (08:19)
[2025-02-02] MEDS: POTASSIUM CHLORIDE CRTAB 20 MEQ TABCR PO STA (08:20)
[2025-02-02 09:14] LABS: Hep B Surface Ag with confirm Negative (Negative)
[2025-02-02 09:18] LABS: Hep C Ab Rflx HepCQuant RNA Negative (Negative)
[2025-02-02 10:42] VITALS: O2SAT 100
[2025-02-02] MEDS ORDERED: Nursing to Pharmacy Communication SCH (13:30)
--- NOTE | 2025-02-02 16:39 | Hospitalist Progress Note ---
Date of Service February 02, 2025 Assessment & Plan (1) Delirium tremens: Plan: -patient had 2 seizures, one prior to arrival, one in ED, both witnessed -no prior seizures or seizure hx, drug screen positive for THC only, negative alcohol level supportive of DT -no nidus of infection, MRI head unremarkable -strongly suspect 2/2 alcohol withdrawal, other etiologies less likely, loaded with keppra in ED -overnight given 4 mg of ativan, AWSS apepars to be downtrending Plan: -appreciate neurology consult -continue 500 bid of keppra outpatient -discussed alcohol cessation, risks and benefits explained, patient states he is open to outpatient rehab -continue thiamine, folic acid -continue phenobarbital and prn ativan -appreciate critical care assistance, AWSS appears to be improving but patient still agitated (2) New onset seizure: Plan: -see above (3) Postictal psychosis: Plan: -improved (4) Transaminitis: Plan: -hepatic steatosis vs. cirrhosis Plan I spent a total of 50 minutes in direct patient care, including [id number] time with the patient and/or family, reviewing medical records, ordering and reviewing diagnostic tests, and coordinating care with other healthcare providers. This time includes: history taking, physical examination, medical decision making, counseling, ECG interpretation, imaging interpretation, lab interpretation, orders, and education, excluding time spent in the performance of separately billed services. Admission and Anticipated Discharge Date Admission Date: January 30, 2025 Subjective Patient seen and examined at bedside. Patient doing well today in the morning. He has a list of questions he wants to ask regarding sobriety. He states he is very motivated to become sober. On repeat evaluation, patient is agitated but fully decisional states he wants to go home. However, patient agreed to stay after discussion with mother and our team. Review of Systems Review of Systems: CONSTITUTIONAL: fatigue, tremulousness, improved EYES: Patient denies any visual symptoms. EARS, NOSE, AND THROAT: No difficulties with hearing. No symptoms of rhinitis or sore throat. CARDIOVASCULAR: Patient denies chest pains, palpitations, orthopnea and paroxysmal nocturnal dyspnea. RESPIRATORY: No dyspnea on exertion, no wheezing or cough. GI: No nausea, vomiting, diarrhea, constipation, abdominal pain, hematochezia or melena. : No urinary hesitancy or dribbling. No nocturia or urinary frequency. No abnormal urethral discharge. MUSCULOSKELETAL: No myalgias or arthralgias. NEUROLOGIC: No chronic headaches, no seizures. Patient denies numbness, tingling or weakness. PSYCHIATRIC: Patient denies problems with mood disturbance. No problems with anxiety. ENDOCRINE: No excessive urination or excessive thirst. DERMATOLOGIC: Patient denies any rashes or skin changes. Physical Exam Physical Exam: Gen: A&O 3 NAD HEENT: NCAT, EOMI, not icteric. External ears normal. No rhinorrhea. Moist mucous membranes. Neck: Supple, full range of motion, no observable masses, No meningeal sign. Lungs: No Respiratory distress. CV: RRR, no edema. Abdomen: Soft, nondistended, No rebound tenderness. MSK: No joint swelling, no redness. Skin: No rashes, petechiae, lesions. Normal color per patient. Neuro: Normal Gait, Grossly intact. Tremulousness noted, bilateral tremor noted, in morning sitting calmly with minimal tremors, in afternoon agitated, minimal tremors but still had capacity Results & Data Results & Data Vital Signs (Past 12 Hours) Vital Signs Temp Pulse Pulse Resp BP Pulse Ox O2 Del Method 02/02/25 14:55 36.8 C 75 18 139/92 100 Room Air 02/02/25 10:41 36.7 C 87 17 132/88 100 Room Air 02/02/25 08:00 60 02/02/25 07:39 36.8 C 58 L 16 138/84 99 Room Air 02/02/25 07:23 Room Air 02/02/25 07:19 36.8 C 58 L 16 138/84 99 Room Air Laboratory Results -personally reviewed, potassium of 3.1 noted, sodium of 134 noted Medications Administered Enoxaparin Sodium (Enoxaparin Inj 40 Mg/0.4 Ml Syr) 40 mg SQ QAM [facility] Stop: 03/03/25 08:59 Last Admin: 02/02/25 07:57 Dose: 40 mg Documented By: Admin: 02/01/25 08:17 Dose: 40 mg Documented By: LUPE Folic Acid (Folic Acid 1 Mg Tab) 1 mg PO QAM [facility] Stop: 03/02/25 08:59 Last Admin: 02/02/25 07:56 Dose: 1 mg Documented By: Admin: 02/01/25 12:25 Dose: Not Given Documented By: Admin: 01/31/25 07:53 Dose: 1 mg Documented By: ALONDRA Levetiracetam (Levetiracetam Oral Soln 100mg/Ml) 500 mg PO Q12H [facility] Stop: 03/04/25 07:59 Last Admin: 02/02/25 08:19 Dose: 500 mg Documented By: JESSICA Miscellaneous (Remove Nicoderm Patch) 1 each N/A DAILY@0859 [facility] Stop: 03/04/25 08:58 Last Admin: 02/02/25 08:01 Dose: 1 each Documented By: JESSICA Multivitamins (Multivitamin Tab) 1 tab PO QAM [facility] Stop: 03/02/25 08:59 Last Admin: 02/02/25 07:56 Dose: 1 tab Documented By: Admin: 02/01/25 12:25 Dose: Not Given Documented By: Admin: 01/31/25 07:51 Dose: 1 tab Documented By: ALONDRA Nicotine (Nicotine 21 Mg/24 Hr Tdsy) 1 patch TD DAILY [facility] Stop: 03/04/25 03:19 Last Admin: 02/02/25 07:57 Dose: 1 patch Documented By: Admin: 02/02/25 03:31 Dose: 1 patch Documented By: ORION Thiamine HCl (Thiamine Hcl 100 Mg Tab) 100 mg PO QAM [facility] Stop: 03/02/25 08:59 Last Admin: 02/02/25 07:56 Dose: 100 mg Documented By: Admin: 02/01/25 12:26 Dose: Not Given Documented By: Admin: 01/31/25 07:53 Dose: 100 mg Documented By: ALONDRA
[2025-02-02] MEDS: ACETAMINOPHEN 325 MG TAB PO PRN (18:10)
[2025-02-02] MEDS: LORazepam 1 MG TAB SL STA (22:34)
[2025-02-03] MEDS: busPIRone 5 MG TAB PO SCH (00:54)
[2025-02-03 06:37] LABS: Basophils # (auto) 0.02 K/uL (0.00-0.20); Basophils % (auto) 0.3 %; Eosinophils # (auto) 0.05 K/uL (0.00-0.50); Eosinophils % (auto) 0.9 %; Hemoglobin 12.7 g/dl (14.0-18.0); Immature Granulocytes # (auto) 0.05 K/uL (0.01-0.20); Immature Granulocytes % (auto) 0.9 %; Lymphocytes # (auto) 1.12 K/uL (1.20-3.40); Lymphocytes % (auto) 19.4 %; Mean Corpuscular Hemoglobin 33.2 pg (25.0-34.0); Mean Corpuscular Hgb Conc 34.3 g/dL (32.0-36.0); Mean Corpuscular Volume 96.9 fL (80.0-100.0); Mean Platelet Volume 10.2 fL (9.4-12.4); Monocytes # (auto) 0.79 K/uL (0.11-0.59); Monocytes % (auto) 13.7 %; Neutrophils # (auto) 3.75 K/uL (1.40-6.50); Neutrophils % (auto) 64.8 %; Platelet Count 168 K/uL (130-400); RDW Coefficient of Variation 10.9 % (11.5-14.5); RDW Standard Deviation 38.5 fL (36.4-46.3); Red Blood Count 3.82 M/uL (4.70-6.10); White Blood Count 5.78 K/ul (4.8-10.8)
[2025-02-03 07:06] LABS: Prothrombin Time 10.9 Seconds (9.0-12.0)
[2025-02-03 07:22] VITALS: BP 114/78; PULSE 70; RESP 18; TEMP 98.2
[2025-02-03 07:25] LABS: BUN Creatinine Ratio 7.5 (10-20); Calcium 9.2 mg/dl (8.6-10.3); Creatinine Clr Calc Pharmacy 163.7 ml/min; Potassium 3.5 mmol/L (3.5-5.1)
[2025-02-03 13:13] LABS: Hepatitis A Antibody IgM NON-REACTIVE (NON-REACTIVE); Hepatitis B Core Antibody IgM NON-REACTIVE (NON-REACTIVE)
[2025-02-03] MEDS ORDERED: PHENobarbitaL 30 MG TAB PO SCH (14:30)
--- NOTE | 2025-02-03 18:16 | Discharge Summary ---
Discharge Summary Date of Service February 03, 2025 Principal Dx & Hospital Course #1 = Principal Diagnosis (1) Delirium tremens: -patient had 2 seizures, one prior to arrival, one in ED, both witnessed -no prior seizures or seizure hx, drug screen positive for THC only, negative alcohol level supportive of DT -no nidus of infection, MRI head unremarkable -strongly suspect 2/2 alcohol withdrawal, other etiologies less likely, loaded with keppra in ED -overnight given 4 mg of ativan, AWSS apepars to be downtrending Plan: -appreciate neurology consult -continue 500 bid of keppra outpatient -discussed alcohol cessation, risks and benefits explained, patient states he is open to outpatient rehab -continue thiamine, folic acid (2) New onset seizure: -see above (3) Postictal psychosis: -improved (4) Transaminitis: -hepatic steatosis vs. cirrhosis Notes For Next Care Provider Patient 39-year-old gentleman who was found at his workplace at the bottom of the stairs appearing his elevated falling. Noted to have 2 seizures in ED, admitted to medicine. Concern for delirium tremens, required ICU stay for combination high AWSS scores and alcohol hallucinosis. Required phenobarbital load, taper, and ativan prn on top of it. On 02/03/2025 withdrawal symptoms subsided, patient medically stable for discharge home. Discussed need for sobriety, patient agreeable to starting outpatient rehab. Medication Changes From Visit -lexapro, buspar, keppra, nicotine patch Admission HPI Per Admitting Provider Patient 39-year-old gentleman who was found at his workplace at the bottom of the stairs appearing his elevated falling. Apparently he had lost consciousness and initially was confused and incontinent. EMS reported that he was unable to state the month and year correctly initially. As a EMS started to attend him he was oriented x 4. He states that he fell up the stairs and did not fall down the stairs but does not remember falling. He denied any head or neck pain. In the field the patient states that he took some DayQuil prior to going to work does not take any other medications but does smoke marijuana. He denied any alcohol use today. No previous history of seizures. In the emergency room imaging was unremarkable, however the cannot fully clear his cervical spine due to his sedation. He did have a witnessed seizure here in the hospital in the emergency department. He ultimately needed 2 mg of Ativan x 3 doses and a loading dose of Keppra. Other laboratory studies were significant for some transaminitis. Time of my evaluation the patient is significantly sedated and/or postictal. Would open his eyes. He attempted to answer 1 or 2 questions but what he answered was unintelligible. Communication with the nurses stated that prior to his seizure he was completely oriented here in the emergency department. They report that he denied alcohol use. They states that his agitation started with the seizure. Review of the EMR notes that he was in that he emergency room back in July 2024. At that time the patient did admit to drinking a sixpack of beer a day. Discharge Exam Gen: A&O 3 NAD HEENT: NCAT, EOMI, not icteric. External ears normal. No rhinorrhea. Moist mucous membranes. Neck: Supple, full range of motion, no observable masses, No meningeal sign. Lungs: No Respiratory distress. CV: RRR, no edema. Abdomen: Soft, nondistended, No rebound tenderness. MSK: No joint swelling, no redness. Skin: No rashes, petechiae, lesions. Normal color per patient. Neuro: Normal Gait, Grossly intact. minimal tremor Updated Medication List Medication Instructions Recorded Confirmed Type No Known Home Medications 08/03/24 08/03/24 History buspirone 5 mg tablet 5 mg PO TID #90 tabs 02/03/25 Rx escitalopram oxalate 5 mg tablet 5 mg PO DAILY #30 tabs 02/03/25 Rx (Lexapro) folic acid 1 mg tablet 1 mg PO QAM #30 tabs 02/03/25 Rx levetiracetam 100 mg/mL oral 500 mg (5 mL) PO Q12H #473 mL 02/03/25 Rx solution (Keppra) multivitamin with folic acid 400 1 tab PO QAM #30 tabs 02/03/25 Rx mcg tablet (Daily-Kay (with folic acid)) nicotine 21 mg/24 hr daily 1 patch transdermal DAILY #28 ea 02/03/25 Rx transdermal patch (Nicoderm CQ) ondansetron 4 mg disintegrating 4 mg PO DAILY PRN nausea and 02/03/25 Rx tablet vomiting 7 days #10 tabs thiamine HCl (vitamin B1) 100 mg 100 mg PO QAM #30 tabs 02/03/25 Rx tablet Hospital Stay Data Consultations 01/30/25 18:18 ED Decision to Admit Stat 01/31/25 16:31 Consult Quality Engineering Manager Routine 01/31/25 17:00 Consult Neurology Routine Diagnostic Imagining Performed 01/30/25 16:56 CT cervical spine wo con Stat CT head/brain wo con Stat 01/30/25 19:02 MR brain wo con Routine 01/31/25 00:00 US liver Stat Pending Results Patient Have Any Pending Studies at Discharge: No Discharge Instructions Given to Patient (Per Discharging Provider) 1. Please abstain from alcohol at this time. 2. Follow up outpatient with alcohol rehab. Total Time Total Time Spent Total Time Spent (In Minutes): I spent a total of 35 minutes in direct patient care, including thow-rk-mrbi time with the patient and/or family, reviewing medical records, ordering and reviewing diagnostic tests, and coordinating care with other healthcare providers. This time includes: history taking, physical examination, medical decision making, counseling, ECG interpretation, imaging interpretation, lab interpretation, orders, and education, excluding time spent in the performance of separately billed services.
[2025-02-04 08:41] LABS: Marijuana Quant, GCMS Urine 665 ng/mL (<5)
== END 2025-02-03 11:41 | disposition home or self-care (01) | DRG 897 ==
LOC: ED 16:20 → SUATTDRO 18:57 → 4W 18:57 → 1E 01-31 16:05 → 2S 02-02 06:44